=== PATIENT | female | born 1990 | race Hispanic/Latino ===

== ENCOUNTER 2016-08-29 05:09 | Observation (INO) | payer SELFPAY ==
[~2016-08-29] VITALS: Ht 162.6 cm; Wt 121.0 kg
[~2016-08-29 05:09] MED LIST: NAPROSYN500 MG PO; PROTONIX40 MG PO
[2016-08-29 06:01] LABS: HEMATOCRIT 43.3 % (37.0-47.0); HEMOGLOBIN 14.3 g/dl (12.0-16.0); IMMATURE GRANULOCYTES 0.6 % (0.0-1.0); MEAN CELL VOLUME 87.1 fL CALC (80.0-100.0); MEAN CORPUSCULAR HGB 28.8 pG CALC (26.0-32.0); NEUT# 10.65 thou/uL (2.00-7.15); RED BLOOD COUNT 4.97 mill/uL (4.20-5.60); RED CELL DISTRI WIDTH 13.6 % (11.5-15.5)
[2016-08-29 06:20] LABS: ACT PARTIAL THROMBO TIME 27.5 SECONDS (20.0-32.5); ALBUMIN 4.5 g/dL (3.2-5.0); ALKALINE PHOSPHATASE 68 u/l (38-126); ANION GAP 16 (6-22 (CALC)); BILIRUBIN, TOTAL 0.5 mg/dL (0.0-1.4); BUN 15 mg/dL (7-17); BUN/CREATININE RATIO 23 (12-20 (CALC)); CALCIUM 9.5 mg/dL (8.4-10.2); CARBON DIOXIDE 27 mmol/l (22-30); CHLORIDE 102 mmol/l (95-108); CREATININE 0.7 mg/dL (0.5-1.0); GFR > 60 ML/MIN (>=60 (CALC)); GFR FOR AFR.AMER. > 60 ML/MIN (>=60 (CALC)); GLUCOSE 118 mg/dL (65-105); INTERNATIONAL NORMALIZED RATIO 0.9 RATIO (0.7-1.3); POTASSIUM 3.8 mmol/l (3.5-5.1); PROTHROMBIN TIME 10.2 SECONDS (9.0-12.5); SGOT/AST 24 u/l (14-36); SGPT/ALT 29 u/l (9-52); SODIUM 141 mmol/l (137-146); TOTAL PROTEIN 8.1 g/dL (6.3-8.2)
[2016-08-29 08:10] VITALS: BP 188/88
[2016-08-29] MEDS ORDERED: LOSARTAN POT50 MG PO (13:18)
[2016-08-29] MEDS ORDERED: AMLODIPINE BESYL5 MG PO (13:18)
== END 2016-08-29 13:46 | disposition left against medical advice (07) | DRG 305 ==
LOC: ED 05:09 → ED-I 05:39 → ED 05:39 → ED-I 06:55 → ED 07:02 → MS2 07:03
PROVIDERS: Emergency Medicine; ADMIT Internal Medicine; ATTEND Internal Medicine
DX: I16.0 Hypertensive urgency (principal); Z68.42 Body mass index [BMI] 45.0-49.9, adult; I10 Essential (primary) hypertension; H57.8 Other specified disorders of eye and adnexa; E66.01 Morbid (severe) obesity due to excess calories; Z91.14 Patient's other noncompliance with medication regimen
CPT/HCPCS: G0378

== ENCOUNTER 2017-04-14 18:43 | Inpatient (IN) | payer SELFPAY ==
[~2017-04-14] VITALS: Ht 162.6 cm; Wt 111.6 kg
[~2017-04-14 18:43] MED LIST changes: +AMLODIPINE BESYL5 MG PO; +LOSARTAN POT50 MG PO
[2017-04-14 19:45] LABS: HEMATOCRIT 46.7 % (37.0-47.0); HEMOGLOBIN 14.9 g/dl (12.0-16.0); IMMATURE GRANULOCYTES 0.7 % (0.0-1.0); MEAN CELL VOLUME 85.7 fL CALC (80.0-100.0); MEAN CORPUSCULAR HGB 27.3 pG CALC (26.0-32.0); MEAN CORPUSCULAR HGB CONC 31.9 g/L CALC (32.0-36.0); NEUT# 16.74 thou/uL (2.00-7.15); RED BLOOD COUNT 5.45 mill/uL (4.20-5.60); RED CELL DISTRI WIDTH 16.1 % (11.5-15.5)
[2017-04-14 20:08] LABS: ALBUMIN 4.7 g/dL (3.2-5.0); ALKALINE PHOSPHATASE 91 u/l (38-126); ANION GAP 21 (6-22 (CALC)); BILIRUBIN, TOTAL 0.7 mg/dL (0.0-1.4); BUN 21 mg/dL (7-17); BUN/CREATININE RATIO 17 (12-20 (CALC)); CALCIUM 9.8 mg/dL (8.4-10.2); CARBON DIOXIDE 24 mmol/l (22-30); CHLORIDE 101 mmol/l (95-108); CREATININE 1.2 mg/dL (0.5-1.0); GFR 54 ML/MIN (>=60 (CALC)); GFR FOR AFR.AMER. > 60 ML/MIN (>=60 (CALC)); GLUCOSE 154 mg/dL (65-105); POTASSIUM 3.8 mmol/l (3.5-5.1); SGOT/AST 32 u/l (14-36); SGPT/ALT 25 u/l (9-52); SODIUM 142 mmol/l (137-146); TOTAL PROTEIN 8.3 g/dL (6.3-8.2)
[2017-04-14 20:14] LABS: URINE BILIRUBIN - DIPSTICK NEGATIVE (NEGATIVE); URINE BLOOD DIPSTICK LARGE (NEGATIVE); URINE COLOR YELLOW; URINE GLUCOSE - DIPSTICK 100 mg/dL (NEGATIVE); URINE KETONE NEGATIVE (NEGATIVE); URINE LEUK ESTERASE NEGATIVE (NEGATIVE); URINE NITRITE - DIPSTICK NEGATIVE (Negative); URINE PROTEIN - DIPSTICK >=300 mg/dL (NEG-TRACE); URINE SPECIFIC GRAVITY >=1.030; URINE UROBILINOGEN - DIPSTICK 0.2 E.U./dL (0.2)
[2017-04-14 20:15] LABS: URINE CLARITY CLEAR; URINE HYALINE CAST FEW lpf (NONE-RARE); URINE SQUAMOUS EPITHELIAL CELL FEW EPI/hpf (0-FEW)
[2017-04-14 20:16] LABS: BARBITURATES NEGATIVE (NEGATIVE); COCAINE NEGATIVE (NEGATIVE); METHADONE NEGATIVE (NEGATIVE); OXCYCODONE NEGATIVE (NEGATIVE); TETRAHYDROCANNABIONOL NEGATIVE (NEGATIVE); TRICYLIC ANTIDEPRESSANTS NEGATIVE (NEGATIVE)
[2017-04-14 20:17] LABS: MYOGLOBIN 46 ng/mL (0 - 62)
[2017-04-15] VITALS (24 sets, daily range): BP systolic 143–208; BP diastolic 75–129
[2017-04-15 06:26] LABS: HEMATOCRIT 43.2 % (37.0-47.0); HEMOGLOBIN 13.8 g/dl (12.0-16.0); MEAN CELL VOLUME 84.7 fL CALC (80.0-100.0); MEAN CORPUSCULAR HGB 27.1 pG CALC (26.0-32.0); MEAN CORPUSCULAR HGB CONC 31.9 g/L CALC (32.0-36.0); RED BLOOD COUNT 5.1 mill/uL (4.20-5.60); RED CELL DISTRI WIDTH 16.1 % (11.5-15.5)
[2017-04-15 06:57] LABS: ANION GAP 17 (6-22 (CALC)); BUN 18 mg/dL (7-17); BUN/CREATININE RATIO 18 (12-20 (CALC)); CALCIUM 9.6 mg/dL (8.4-10.2); CALCULATED LDLCHOLESTEROL 147 mg/dL (62-129 (CALC)); CARBON DIOXIDE 24 mmol/l (22-30); CHLORIDE 102 mmol/l (95-108); CHOLESTEROL HDL RATIO 5.7 (<4.4 (CALC)); GFR > 60 ML/MIN (>=60 (CALC)); GFR FOR AFR.AMER. > 60 ML/MIN (>=60 (CALC)); GLUCOSE 134 mg/dL (65-105); HDL CHOLESTEROL 37 mg/dL (>=40); MAGNESIUM 1.9 mg/dL (1.6-2.3); POTASSIUM 4.1 mmol/l (3.5-5.1); SODIUM 139 mmol/l (137-146); TOTAL CHOLESTEROL 211 mg/dl (0-199); TOTAL TRIGLYCERIDES 136 mg/dl (30-149); VLDL CHOLESTROL 27 mg/dl (2-29 (CALC))
[2017-04-16] VITALS (12 sets, daily range): BP systolic 143–175; BP diastolic 63–95
[2017-04-16 05:52] LABS: ANION GAP 14 (6-22 (CALC)); BUN 20 mg/dL (7-17); BUN/CREATININE RATIO 21 (12-20 (CALC)); CALCIUM 9.8 mg/dL (8.4-10.2); CARBON DIOXIDE 25 mmol/l (22-30); CHLORIDE 106 mmol/l (95-108); CREATININE 0.9 mg/dL (0.5-1.0); GFR > 60 ML/MIN (>=60 (CALC)); GFR FOR AFR.AMER. > 60 ML/MIN (>=60 (CALC)); GLUCOSE 137 mg/dL (65-105); POTASSIUM 4.5 mmol/l (3.5-5.1); SODIUM 141 mmol/l (137-146)
[2017-04-16 05:55] LABS: HEMATOCRIT 41.8 % (37.0-47.0); HEMOGLOBIN 13.2 g/dl (12.0-16.0); MEAN CELL VOLUME 87.3 fL CALC (80.0-100.0); MEAN CORPUSCULAR HGB 27.6 pG CALC (26.0-32.0); MEAN CORPUSCULAR HGB CONC 31.6 g/L CALC (32.0-36.0); RED BLOOD COUNT 4.79 mill/uL (4.20-5.60); RED CELL DISTRI WIDTH 16.7 % (11.5-15.5)
[2017-04-17] VITALS (9 sets, daily range): BP systolic 151–188; BP diastolic 77–104
[2017-04-17 05:18] LABS: HEMATOCRIT 43.3 % (37.0-47.0); HEMOGLOBIN 13.6 g/dl (12.0-16.0); IMMATURE GRANULOCYTES 1.1 % (0.0-1.0); MEAN CORPUSCULAR HGB 27.6 pG CALC (26.0-32.0); MEAN CORPUSCULAR HGB CONC 31.4 g/L CALC (32.0-36.0); NEUT# 24.01 thou/uL (2.00-7.15); RED BLOOD COUNT 4.92 mill/uL (4.20-5.60)
[2017-04-17 05:28] LABS: ANION GAP 15 (6-22 (CALC)); BUN 26 mg/dL (7-17); BUN/CREATININE RATIO 28 (12-20 (CALC)); CALCIUM 10.1 mg/dL (8.4-10.2); CARBON DIOXIDE 25 mmol/l (22-30); CHLORIDE 105 mmol/l (95-108); CREATININE 0.9 mg/dL (0.5-1.0); GFR > 60 ML/MIN (>=60 (CALC)); GFR FOR AFR.AMER. > 60 ML/MIN (>=60 (CALC)); GLUCOSE 139 mg/dL (65-105); MAGNESIUM 2.4 mg/dL (1.6-2.3); SODIUM 139 mmol/l (137-146)
[2017-04-17] MEDS ORDERED: LEVAQUIN750 MG PO (12:48)
[2017-04-17] MEDS ORDERED: PREDNISONE10 MG PO (12:48)
[2017-04-17] MEDS ORDERED: AMLODIPINE BESYL5 MG PO (12:48)
[2017-04-17] MEDS ORDERED: TENORMIN25 MG PO (12:48)
[2017-04-17] MEDS ORDERED: LOSARTAN POT50 MG PO (12:48)
[2017-04-17] MEDS ORDERED: ROBITUSSIN AC10 ML PO (12:48)
== END 2017-04-17 13:10 | disposition home or self-care (01) | DRG 304 ==
LOC: ED 18:43 → ED-I 22:50 → ED 23:11 → ICU 23:12 → ED 23:48 → ED-I 23:48 → ICU 04-17 13:10
PROVIDERS: Emergency Medicine; Nurse Practitioner Family; ADMIT Internal Medicine; ATTEND Internal Medicine
DX: I16.0 Hypertensive urgency (principal); J18.9 Pneumonia, unspecified organism; N17.9 Acute kidney failure, unspecified; Z68.41 Body mass index [BMI] 40.0-44.9, adult; I10 Essential (primary) hypertension; E66.01 Morbid (severe) obesity due to excess calories; D72.829 Elevated white blood cell count, unspecified; T38.0X5A Adverse effect of glucocorticoids and synthetic analogues, initial encounter; N92.6 Irregular menstruation, unspecified; Z91.14 Patient's other noncompliance with medication regimen
CPT/HCPCS: J1650

== ENCOUNTER 2017-07-25 11:31 | Emergency (ER) | payer SELFPAY ==
[~2017-07-25] VITALS: Ht 162.6 cm; Wt 114.0 kg
[~2017-07-25 11:31] MED LIST changes: +LEVAQUIN750 MG PO; +PREDNISONE10 MG PO; +ROBITUSSIN AC10 ML PO; +TENORMIN25 MG PO
[2017-07-25 12:13] LABS: URINE BILIRUBIN - DIPSTICK NEGATIVE (NEGATIVE); URINE BLOOD DIPSTICK MODERATE (NEGATIVE); URINE COLOR YELLOW; URINE GLUCOSE - DIPSTICK NEGATIVE (NEGATIVE); URINE KETONE NEGATIVE (NEGATIVE); URINE LEUK ESTERASE NEGATIVE (NEGATIVE); URINE NITRITE - DIPSTICK NEGATIVE (Negative); URINE PH 5.5 (4.5-8.0); URINE PROTEIN - DIPSTICK >=300 mg/dL (NEG-TRACE); URINE SPECIFIC GRAVITY >=1.030; URINE UROBILINOGEN - DIPSTICK 0.2 E.U./dL (0.2)
[2017-07-25 12:14] LABS: URINE CLARITY SL CLOUDY
[2017-07-25 12:15] LABS: HEMATOCRIT 44.5 % (37.0-47.0); HEMOGLOBIN 14.4 g/dl (12.0-16.0); IMMATURE GRANULOCYTES 0.5 % (0.0-1.0); MEAN CELL VOLUME 88.3 fL CALC (80.0-100.0); MEAN CORPUSCULAR HGB 28.6 pG CALC (26.0-32.0); MEAN CORPUSCULAR HGB CONC 32.4 g/L CALC (32.0-36.0); NEUT# 12.43 thou/uL (2.00-7.15); RED BLOOD COUNT 5.04 mill/uL (4.20-5.60); RED CELL DISTRI WIDTH 14.9 % (11.5-15.5)
[2017-07-25 12:19] LABS: URINE SQUAMOUS EPITHELIAL CELL MANY EPI/hpf (0-FEW)
[2017-07-25 12:39] LABS: ALBUMIN 4.8 g/dL (3.2-5.0); ALKALINE PHOSPHATASE 73 u/l (38-126); AMYLASE 60 u/l (30-110); ANION GAP 23 (6-22 (CALC)); BILIRUBIN, TOTAL 0.7 mg/dL (0.0-1.4); BUN 16 mg/dL (7-17); BUN/CREATININE RATIO 20 (12-20 (CALC)); CARBON DIOXIDE 22 mmol/l (22-30); CHLORIDE 104 mmol/l (95-108); CREATININE 0.8 mg/dL (0.5-1.0); GFR > 60 ML/MIN (>=60 (CALC)); GFR FOR AFR.AMER. > 60 ML/MIN (>=60 (CALC)); LIPASE 170 u/l (23-300); POTASSIUM 4.2 mmol/l (3.5-5.1); SGOT/AST 21 u/l (14-36); SGPT/ALT 33 u/l (9-52); SODIUM 145 mmol/l (137-146); TOTAL PROTEIN 8.7 g/dL (6.3-8.2)
[2017-07-25] MEDS ORDERED: TENORMIN PO (14:46)
[2017-07-25 14:56] VITALS: BP 175/82
[2017-07-26] MEDS ORDERED: ASPIRIN81 MG PO (22:58)
== END 2017-07-25 15:10 | disposition home or self-care (01) | DRG 446 ==
LOC: ED 11:31
PROVIDERS: Family Medicine
DX: K81.0 Acute cholecystitis (principal); I10 Essential (primary) hypertension

== ENCOUNTER 2017-07-26 22:41 | Emergency (ER) | payer SELFPAY ==
[~2017-07-26] VITALS: Ht 162.6 cm; Wt 115.6 kg
[~2017-07-26 22:41] MED LIST changes: +TENORMIN PO
[2017-07-26] MEDS ORDERED: ASPIRIN81 MG PO (22:58)
[2017-07-26 23:28] LABS: HEMATOCRIT 40.9 % (37.0-47.0); HEMOGLOBIN 13.4 g/dl (12.0-16.0); IMMATURE GRANULOCYTES 0.4 % (0.0-1.0); MEAN CORPUSCULAR HGB 28.5 pG CALC (26.0-32.0); MEAN CORPUSCULAR HGB CONC 32.8 g/L CALC (32.0-36.0); NEUT# 13.78 thou/uL (2.00-7.15); RED BLOOD COUNT 4.7 mill/uL (4.20-5.60); RED CELL DISTRI WIDTH 15.1 % (11.5-15.5)
[2017-07-26 23:46] LABS: ALBUMIN 4.3 g/dL (3.2-5.0); AMYLASE 57 u/l (30-110); ANION GAP 18 (6-22 (CALC)); BILIRUBIN, TOTAL 3.8 mg/dL (0.0-1.4); BUN 8 mg/dL (7-17); BUN/CREATININE RATIO 10 (12-20 (CALC)); CARBON DIOXIDE 25 mmol/l (22-30); CHLORIDE 103 mmol/l (95-108); CREATININE 0.7 mg/dL (0.5-1.0); GFR > 60 ML/MIN (>=60 (CALC)); GFR FOR AFR.AMER. > 60 ML/MIN (>=60 (CALC)); LIPASE 197 u/l (23-300); POTASSIUM 3.8 mmol/l (3.5-5.1); SGPT/ALT 182 u/l (9-52); SODIUM 143 mmol/l (137-146); TOTAL PROTEIN 7.9 g/dL (6.3-8.2)
[2017-07-26 23:51] LABS: ALKALINE PHOSPHATASE 124 u/l (38-126); SGOT/AST 204 u/l (14-36)
[2017-07-27 02:45] VITALS: BP 149/77
== END 2017-07-27 02:43 | disposition short-term general hospital (02) | DRG 446 ==
LOC: ED 22:41
PROVIDERS: Emergency Medicine
DX: K81.0 Acute cholecystitis (principal); E80.6 Other disorders of bilirubin metabolism; I10 Essential (primary) hypertension
CPT/HCPCS: S0164

== ENCOUNTER 2017-10-21 19:38 | Inpatient (IN) | payer SELFPAY ==
[~2017-10-21] VITALS: Ht 162.6 cm; Wt 110.0 kg
[~2017-10-21 19:38] MED LIST changes: +ASPIRIN81 MG PO
[2017-10-21 19:57] LABS: HEMATOCRIT 44.6 % (37.0-47.0); HEMOGLOBIN 14.2 g/dl (12.0-16.0); IMMATURE GRANULOCYTES 0.5 % (0.0-5.0); MEAN CELL VOLUME 88.5 fL CALC (80.0-100.0); MEAN CORPUSCULAR HGB 28.2 pG CALC (26.0-32.0); MEAN CORPUSCULAR HGB CONC 31.8 g/L CALC (32.0-36.0); NEUT# 13.92 thou/uL (2.00-7.15); RED BLOOD COUNT 5.04 mill/uL (4.20-5.60); RED CELL DISTRI WIDTH 16.1 % (11.5-15.5)
[2017-10-21 20:09] LABS: ALBUMIN 4.3 g/dL (3.2-5.0); ALKALINE PHOSPHATASE 72 u/l (38-126); ANION GAP 15 (6-22 (CALC)); BILIRUBIN, TOTAL 1.3 mg/dL (0.0-1.4); BUN 17 mg/dL (7-17); BUN/CREATININE RATIO 17 (12-20 (CALC)); CARBON DIOXIDE 26 mmol/l (22-30); CHLORIDE 105 mmol/l (95-108); GFR > 60 ML/MIN (>=60 (CALC)); GFR FOR AFR.AMER. > 60 ML/MIN (>=60 (CALC)); POTASSIUM 4.1 mmol/l (3.5-5.1); SGPT/ALT 28 u/l (9-52); SODIUM 141 mmol/l (137-146)
[2017-10-21 20:14] LABS: SGOT/AST 25 u/l (14-36)
[2017-10-21 20:17] LABS: MYOGLOBIN 26 ng/mL (0 - 62)
[2017-10-21 22:08] LABS: URINE BILIRUBIN - DIPSTICK NEGATIVE (NEGATIVE); URINE BLOOD DIPSTICK MODERATE (NEGATIVE); URINE COLOR YELLOW; URINE GLUCOSE - DIPSTICK NEGATIVE (NEGATIVE); URINE KETONE NEGATIVE (NEGATIVE); URINE LEUK ESTERASE NEGATIVE (NEGATIVE); URINE NITRITE - DIPSTICK NEGATIVE (Negative); URINE PROTEIN - DIPSTICK >=300 mg/dL (NEG-TRACE); URINE SPECIFIC GRAVITY 1.025; URINE UROBILINOGEN - DIPSTICK 0.2 E.U./dL (0.2)
[2017-10-21 22:10] LABS: BARBITURATES NEGATIVE (NEGATIVE); COCAINE NEGATIVE (NEGATIVE); METHADONE NEGATIVE (NEGATIVE); OXCYCODONE NEGATIVE (NEGATIVE); TETRAHYDROCANNABIONOL NEGATIVE (NEGATIVE); TRICYLIC ANTIDEPRESSANTS NEGATIVE (NEGATIVE)
[2017-10-21 22:14] LABS: URINE CLARITY HAZY
[2017-10-21 22:28] LABS: URINE SQUAMOUS EPITHELIAL CELL FEW EPI/hpf (0-FEW)
[2017-10-22] VITALS (22 sets, daily range): BP systolic 148–208; BP diastolic 74–125
[2017-10-23] VITALS (12 sets, daily range): BP systolic 145–192; BP diastolic 77–122
[2017-10-23 04:39] LABS: HEMATOCRIT 44.3 % (37.0-47.0); HEMOGLOBIN 13.9 g/dl (12.0-16.0); MEAN CELL VOLUME 88.8 fL CALC (80.0-100.0); MEAN CORPUSCULAR HGB 27.9 pG CALC (26.0-32.0); MEAN CORPUSCULAR HGB CONC 31.4 g/L CALC (32.0-36.0); RED BLOOD COUNT 4.99 mill/uL (4.20-5.60); RED CELL DISTRI WIDTH 16.5 % (11.5-15.5)
[2017-10-23 04:57] LABS: ANION GAP 14 (6-22 (CALC)); BUN 15 mg/dL (7-17); BUN/CREATININE RATIO 18 (12-20 (CALC)); CARBON DIOXIDE 27 mmol/l (22-30); CHLORIDE 102 mmol/l (95-108); CREATININE 0.8 mg/dL (0.5-1.0); GFR > 60 ML/MIN (>=60 (CALC)); GFR FOR AFR.AMER. > 60 ML/MIN (>=60 (CALC)); POTASSIUM 4.3 mmol/l (3.5-5.1); SODIUM 138 mmol/l (137-146)
[2017-10-24] VITALS (13 sets, daily range): BP systolic 126–179; BP diastolic 68–112
[2017-10-24 11:51] LABS: TSH, 3RD GENERATION 2.36 uIU/mL (0.47 - 4.68)
[2017-10-25] VITALS (13 sets, daily range): BP systolic 137–203; BP diastolic 77–118
== END 2017-10-25 16:16 | disposition left against medical advice (07) | DRG 305 ==
LOC: ED 19:38 → ED-I 22:18 → ED 23:10 → ICU 23:11
PROVIDERS: Emergency Medicine; General Practice; ADMIT Internal Medicine; ATTEND Internal Medicine
DX: I16.1 Hypertensive emergency (principal); Z68.42 Body mass index [BMI] 45.0-49.9, adult; I43 Cardiomyopathy in diseases classified elsewhere; I11.9 Hypertensive heart disease without heart failure; E66.01 Morbid (severe) obesity due to excess calories; E28.2 Polycystic ovarian syndrome; D72.829 Elevated white blood cell count, unspecified; F32.9 Major depressive disorder, single episode, unspecified; F41.9 Anxiety disorder, unspecified; I34.0 Nonrheumatic mitral (valve) insufficiency; G47.30 Sleep apnea, unspecified

== ENCOUNTER 2018-02-06 21:47 | Emergency (ER) | payer SELFPAY ==
[~2018-02-06] VITALS: Ht 162.6 cm; Wt 118.4 kg
[~2018-02-06 21:47] MED LIST changes: +METO50TA52 PO; +NORVASC PO; +ZITHROMAX250 MG PO
--- NOTE | 2018-02-06 22:38 | NUR ---
BREATHING TREATMENT GIVEN USING MOUTH PEICE. BREATHING TECH. FOR GOOD DEPOSITION TO THE LUNGS
[2018-02-06 22:52] LABS: URINE BLOOD DIPSTICK LARGE (NEGATIVE); URINE COLOR YELLOW; URINE GLUCOSE - DIPSTICK NEGATIVE (NEGATIVE); URINE KETONE NEGATIVE (NEGATIVE); URINE LEUK ESTERASE NEGATIVE (NEGATIVE); URINE NITRITE - DIPSTICK NEGATIVE (Negative); URINE PROTEIN - DIPSTICK >=300 mg/dL (NEG-TRACE); URINE SPECIFIC GRAVITY 1.025
[2018-02-06 22:53] LABS: URINE BILIRUBIN - DIPSTICK MODERATE (NEGATIVE); URINE CLARITY SL CLOUDY
[2018-02-06 22:58] LABS: URINE BACTERIA FEW hpf; URINE SQUAMOUS EPITHELIAL CELL FEW EPI/hpf (0-FEW); URINE WBC 0-2 WBC/hpf (0-5)
[2018-02-06 22:59] LABS: HEMATOCRIT 45.9 % (37.0-47.0); HEMOGLOBIN 14.5 g/dl (12.0-16.0); IMMATURE GRANULOCYTES 0.7 % (0.0-5.0); MEAN CELL VOLUME 86.3 fL CALC (80.0-100.0); MEAN CORPUSCULAR HGB 27.3 pG CALC (26.0-32.0); MEAN CORPUSCULAR HGB CONC 31.6 g/L CALC (32.0-36.0); NEUT# 13.66 thou/uL (2.00-7.15); RED BLOOD COUNT 5.32 mill/uL (4.20-5.60); RED CELL DISTRI WIDTH 18.9 % (11.5-15.5)
[2018-02-06 22:59] LABS: URINE FINE GRAN CAST MODERATE lpf
[2018-02-06 23:10] LABS: INFLUENZA A NONE DETECTED (NONE DETECT); INFLUENZA B NONE DETECTED (NONE DETECT)
[2018-02-06 23:12] LABS: BILIRUBIN, TOTAL 2.2 mg/dL (0.0-1.4); CREATININE 1.6 mg/dL (0.5-1.0); POTASSIUM 4.3 mmol/l (3.5-5.1); TOTAL PROTEIN 6.5 g/dL (6.3-8.2)
[2018-02-06 23:15] LABS: ALBUMIN 3.2 g/dL (3.2-5.0)
[2018-02-06] MEDS ORDERED: VENTOLIN HFA IN (23:39)
[2018-02-06] MEDS ORDERED: BACTRIM DS1 TAB PO (23:39)
[2018-02-06] MEDS ORDERED: LASIX 40 MG TAB40 MG PO (23:39)
[2018-02-07 01:01] VITALS: BP 161/109
== END 2018-02-07 00:50 | disposition home or self-care (01) | DRG 203 ==
LOC: ED 21:47
PROVIDERS: Family Medicine
DX: J20.9 Acute bronchitis, unspecified (principal); R60.9 Edema, unspecified; D72.829 Elevated white blood cell count, unspecified; I10 Essential (primary) hypertension

== ENCOUNTER 2018-07-01 13:55 | Inpatient (IN) | payer MEDICAID ==
[~2018-07-01] VITALS: Ht 162.6 cm; Wt 114.0 kg
[2018-07-01] VITALS (15 sets, daily range): BP systolic 123–179; BP diastolic 55–107
[~2018-07-01 13:55] MED LIST changes: +BACTRIM DS1 TAB PO; +LASIX 40 MG TAB40 MG PO; +VENTOLIN HFA IN
[2018-07-01 14:13] LABS: HEMATOCRIT 45.2 % (37.0-47.0); HEMOGLOBIN 14.3 g/dl (12.0-16.0); IMMATURE GRANULOCYTES 0.8 % (0.0-5.0); MEAN CORPUSCULAR HGB 29.5 pG CALC (26.0-32.0); MEAN CORPUSCULAR HGB CONC 31.6 g/L CALC (32.0-36.0); NEUT# 14.48 thou/uL (2.00-7.15); RED BLOOD COUNT 4.84 mill/uL (4.20-5.60); RED CELL DISTRI WIDTH 16.1 % (11.5-15.5)
[2018-07-01] MEDS ORDERED: CARVEDILOL25 MG PO (14:15)
[2018-07-01] MEDS ORDERED: AMLODIPINE5 MG PO (14:15)
[2018-07-01] MEDS ORDERED: SPIRONOLACTONE25 MG PO (14:15)
[2018-07-01] MEDS ORDERED: LISINOPRIL10 MG PO (14:15)
[2018-07-01 14:16] LABS: MEAN CELL VOLUME 93.4 fL CALC (80.0-100.0)
[2018-07-01] MEDS ORDERED: ATORVASTATIN CA80 MG PO (14:16)
[2018-07-01] MEDS ORDERED: FUROSEMIDE40 MG PO (14:16)
[2018-07-01] MEDS ORDERED: ASPIRIN81 MG PO (14:16)
[2018-07-01 14:26] LABS: ANION GAP 16 (6-22 (CALC)); BUN 19 mg/dL (7-17); BUN/CREATININE RATIO 16 (12-20 (CALC)); CARBON DIOXIDE 25 mmol/l (22-30); CHLORIDE 101 mmol/l (95-108); CREATININE 1.2 mg/dL (0.5-1.0); GFR 53 ML/MIN (>=60 (CALC)); GFR FOR AFR.AMER. > 60 ML/MIN (>=60 (CALC)); POTASSIUM 4.1 mmol/l (3.5-5.1); SODIUM 138 mmol/l (137-146)
[2018-07-01 15:37] LABS: BARBITURATES NEGATIVE (NEGATIVE); COCAINE NEGATIVE (NEGATIVE); METHADONE NEGATIVE (NEGATIVE); OXCYCODONE NEGATIVE (NEGATIVE); TETRAHYDROCANNABIONOL NEGATIVE (NEGATIVE); TRICYLIC ANTIDEPRESSANTS NEGATIVE (NEGATIVE)
[2018-07-01 15:42] LABS: URINE BILIRUBIN - DIPSTICK NEGATIVE (NEGATIVE); URINE BLOOD DIPSTICK NEGATIVE (NEGATIVE); URINE COLOR YELLOW; URINE GLUCOSE - DIPSTICK NEGATIVE (NEGATIVE); URINE KETONE NEGATIVE (NEGATIVE); URINE LEUK ESTERASE NEGATIVE (NEGATIVE); URINE NITRITE - DIPSTICK NEGATIVE (Negative); URINE PROTEIN - DIPSTICK >=300 mg/dL (NEG-TRACE); URINE SPECIFIC GRAVITY 1.015; URINE UROBILINOGEN - DIPSTICK 0.2 E.U./dL (0.2)
[2018-07-01 15:47] LABS: URINE RBC 0-2 RBC/hpf (0-5); URINE SQUAMOUS EPITHELIAL CELL FEW EPI/hpf (0-FEW); URINE WBC 0-2 WBC/hpf (0-5)
[2018-07-02] VITALS (26 sets, daily range): BP systolic 144–192; BP diastolic 78–125
[2018-07-02 10:01] LABS: HEMOGLOBIN 16.2 g/dl (12.0-16.0); IMMATURE GRANULOCYTES 0.6 % (0.0-5.0); MEAN CELL VOLUME 92.6 fL CALC (80.0-100.0); MEAN CORPUSCULAR HGB 29.1 pG CALC (26.0-32.0); MEAN CORPUSCULAR HGB CONC 31.5 g/L CALC (32.0-36.0); NEUT# 19.1 thou/uL (2.00-7.15); RED BLOOD COUNT 5.56 mill/uL (4.20-5.60); RED CELL DISTRI WIDTH 16.6 % (11.5-15.5)
[2018-07-02 10:07] LABS: HEMATOCRIT 51.5 % (37.0-47.0)
[2018-07-02 10:16] LABS: ALKALINE PHOSPHATASE 79 u/l (38-126); AMYLASE 61 u/l (30-110); ANION GAP 17 (6-22 (CALC)); BILIRUBIN, TOTAL 1.8 mg/dL (0.0-1.4); BUN 13 mg/dL (7-17); BUN/CREATININE RATIO 16 (12-20 (CALC)); CARBON DIOXIDE 26 mmol/l (22-30); CHLORIDE 99 mmol/l (95-108); CREATININE 0.8 mg/dL (0.5-1.0); GFR > 60 ML/MIN (>=60 (CALC)); GFR FOR AFR.AMER. > 60 ML/MIN (>=60 (CALC)); LIPASE 248 u/l (23-300); MAGNESIUM 1.8 mg/dL (1.6-2.3); POTASSIUM 3.8 mmol/l (3.5-5.1); SODIUM 139 mmol/l (137-146)
[2018-07-02 10:19] LABS: ALBUMIN 4.5 g/dL (3.2-5.0); SGOT/AST 29 u/l (14-36); TOTAL PROTEIN 8.5 g/dL (6.3-8.2)
== END 2018-07-02 13:20 | disposition left against medical advice (07) | DRG 305 ==
LOC: ED 13:55 → ED-I 15:07 → ED 15:21 → ICU 15:22
PROVIDERS: Family Medicine; ADMIT Internal Medicine Nephrology; ATTEND Internal Medicine Nephrology
DX: I16.1 Hypertensive emergency (principal); I50.22 Chronic systolic (congestive) heart failure; Z68.41 Body mass index [BMI] 40.0-44.9, adult; I43 Cardiomyopathy in diseases classified elsewhere; I13.0 Hypertensive heart and chronic kidney disease with heart failure and stage 1 through stage 4 chronic kidney disease, or unspecified chronic kidney disease; N18.9 Chronic kidney disease, unspecified; I15.2 Hypertension secondary to endocrine disorders; E66.9 Obesity, unspecified; E28.2 Polycystic ovarian syndrome; T46.5X6A Underdosing of other antihypertensive drugs, initial encounter; Z91.120 Patient's intentional underdosing of medication regimen due to financial hardship

== ENCOUNTER 2019-09-19 11:27 | Emergency (ER) | payer MEDICAID ==
[~2019-09-19] VITALS: Ht 162.6 cm; Wt 159.0 kg
[~2019-09-19 11:27] MED LIST changes: +AMLODIPINE5 MG PO; +ATORVASTATIN CA80 MG PO; +CARVEDILOL25 MG PO; +FUROSEMIDE40 MG PO; +LISINOPRIL10 MG PO; +SPIRONOLACTONE25 MG PO
[2019-09-19] MEDS ORDERED: CETIRIZINE10 MG PO (13:43)
[2019-09-19] MEDS ORDERED: OMEPRAZOLE DR20 MG PO (13:43)
[2019-09-19] MEDS ORDERED: FENOFIBRATE145 MG PO (13:43)
[2019-09-19] MEDS ORDERED: PAROXETINE HCL20 MG PO (13:44)
[2019-09-19] MEDS ORDERED: METFORMIN HCL500 M1 PO (13:44)
[2019-09-19] MEDS ORDERED: PROAIR HFA108 MCG/AC IN (13:45)
[2019-09-19 14:19] VITALS: BP 143/57
--- NOTE | 2019-09-21 18:18 | NUR ---
Notified patient of positive Covid results. Advised patient to quarantine until contacted by [facility] with further instructions. Patient denies dyspnea or fever. Advised patient to return to ED with increase difficulty breathing, high fever or other urgent needs. Patient verbalized understanding.
== END 2019-09-19 14:31 | disposition home or self-care (01) ==
LOC: ED 11:27
DX: U07.1 COVID-19 (principal); I10 Essential (primary) hypertension; I48.91 Unspecified atrial fibrillation

== ENCOUNTER 2019-12-30 05:02 | Emergency (ER) | payer MEDICAID ==
[~2019-12-30] VITALS: Ht 162.6 cm; Wt 113.6 kg
[~2019-12-30 05:02] MED LIST changes: +CETIRIZINE10 MG PO; +FENOFIBRATE145 MG PO; +METFORMIN HCL500 M1 PO; +OMEPRAZOLE DR20 MG PO; +PAROXETINE HCL20 MG PO; +PROAIR HFA108 MCG/AC IN
[2019-12-30 06:17] LABS: HEMATOCRIT 44.7 % (37.0-47.0); HEMOGLOBIN 14.3 g/dl (12.0-16.0); IMMATURE GRANULOCYTES 0.8 % (0.0-5.0); MEAN CELL VOLUME 90.9 fL CALC (80.0-100.0); MEAN CORPUSCULAR HGB 29.1 pG CALC (26.0-32.0); NEUT# 13.83 thou/uL (2.00-7.15); RED BLOOD COUNT 4.92 mill/uL (4.20-5.60); RED CELL DISTRI WIDTH 14.7 % (11.5-15.5)
[2019-12-30 06:20] LABS: URINE BILIRUBIN - DIPSTICK NEGATIVE (NEGATIVE); URINE BLOOD DIPSTICK TRACE-INTACT (NEGATIVE); URINE COLOR YELLOW; URINE GLUCOSE - DIPSTICK NEGATIVE (NEGATIVE); URINE KETONE NEGATIVE (NEGATIVE); URINE LEUK ESTERASE NEGATIVE (NEGATIVE); URINE NITRITE - DIPSTICK NEGATIVE (Negative); URINE PROTEIN - DIPSTICK 100 mg/dL (NEG-TRACE); URINE UROBILINOGEN - DIPSTICK 0.2 E.U./dL (0.2)
[2019-12-30 06:30] LABS: URINE WBC 0-2 WBC/hpf (0-5)
[2019-12-30 06:31] LABS: URINE BACTERIA FEW hpf; URINE EPITHELIAL CELLS MODERATE EPI/hpf (0-FEW)
[2019-12-30 07:24] LABS: ALBUMIN 4.1 g/dL (3.2-5.0); ALKALINE PHOSPHATASE 70 u/l (38-126); ANION GAP 14 (6-22 (CALC)); BILIRUBIN, TOTAL 0.7 mg/dL (0.0-1.4); BUN 15 mg/dL (7-17); BUN/CREATININE RATIO 16 (12-20 (CALC)); CARBON DIOXIDE 25 mmol/l (22-30); CHLORIDE 101 mmol/l (95-108); GFR > 60 ML/MIN (>=60 (CALC)); GFR FOR AFR.AMER. > 60 ML/MIN (>=60 (CALC)); POTASSIUM 3.7 mmol/l (3.5-5.1); SGOT/AST 34 u/l (14-36); SODIUM 137 mmol/l (137-146); TOTAL PROTEIN 7.8 g/dL (6.3-8.2)
[2019-12-30 07:35] LABS: MYOGLOBIN 30 ng/mL (0 - 62)
[2019-12-30 11:29] VITALS: BP 158/90
== END 2019-12-30 11:35 | disposition home or self-care (01) ==
LOC: ED 05:02
PROVIDERS: Emergency Medicine
DX: R07.9 Chest pain, unspecified (principal); R91.8 Other nonspecific abnormal finding of lung field; I10 Essential (primary) hypertension; I48.91 Unspecified atrial fibrillation
CPT/HCPCS: Q9967

== ENCOUNTER 2020-05-27 20:33 | Inpatient (IN) | payer MEDICAID ==
[~2020-05-27] VITALS: Ht 162.6 cm; Wt 128.5 kg
--- NOTE | 2020-05-27 20:52 | NUR ---
PT TRANSPORTED TO ER RM 9
--- NOTE | 2020-05-27 21:11 | NUR ---
INTRODUCED SELF TO PT AND REPORTS PEDAL EDEMA X 3 WEEKS WITH WORSENING OVER THE LAST WEEK. PT STATES SHE DOES TAKE A "WATER PILL" BUT UNABLE TO IDENTIFY THE NAME. C/O DRY COUGH X SEVERAL DAYS. PT UNABLLE TO RECALL HOME MEDICATIONS. STATES SHE TAKES BP MEDS BUT DID NOT TAKE MEDICAITONS TODAY SHE WAS UNABLE TO REST THROUGHOUT THE EVENING AND SLEPT MOST OF THE DAY. BP ELEVATED AT 248/127 WITH HR 130-140S AT SINUS TACH. DR CARDOZO NOTIFIED AND BEDSIDE WITH PT. PT CHANGED INTO GOWN.
--- NOTE | 2020-05-27 21:25 | NUR ---
IV INTIATED WITH LAB SPECIMENS OBTAINED. PT TOLERATED WELL.
[2020-05-27 21:39] LABS: HEMOGLOBIN 15.9 g/dl (12.0-16.0); IMMATURE GRANULOCYTES 1.2 % (0.0-5.0); MEAN CELL VOLUME 90.6 fL CALC (80.0-100.0); MEAN CORPUSCULAR HGB 28.1 pG CALC (26.0-32.0); NEUT# 12.78 thou/uL (2.00-7.15); RED BLOOD COUNT 5.66 mill/uL (4.20-5.60); RED CELL DISTRI WIDTH 16.5 % (11.5-15.5)
--- NOTE | 2020-05-27 21:40 | NUR ---
PT MEDICATED FOR ELEVATED BLOOD PRESSURE WITH CARDIZEM 40 MG SLOW IVP AND LASIX [address] CARDOZO ORDER. PT TOLERATED ADMINISTRATION WELL. TRUCK RENTAL SERVICE ATTENDANT IN PLACE. BP 251/139 HR 136
[2020-05-27 21:41] LABS: HEMATOCRIT 51.3 % (37.0-47.0)
[2020-05-27 21:59] LABS: ALBUMIN 4.2 g/dL (3.2-5.0); ALKALINE PHOSPHATASE 92 u/l (38-126); ANION GAP 14 (6-22 (CALC)); BUN 19 mg/dL (7-17); BUN/CREATININE RATIO 16 (12-20 (CALC)); CARBON DIOXIDE 27 mmol/l (22-30); CHLORIDE 101 mmol/l (95-108); CREATININE 1.2 mg/dL (0.5-1.0); GFR 53 ML/MIN (>=60 (CALC)); GFR FOR AFR.AMER. > 60 ML/MIN (>=60 (CALC)); SGOT/AST 54 u/l (14-36); SODIUM 137 mmol/l (137-146); TOTAL PROTEIN 8.2 g/dL (6.3-8.2)
[2020-05-27 22:01] LABS: ACT PARTIAL THROMBO TIME 24.9 SECONDS (20.0-32.5); INTERNATIONAL NORMALIZED RATIO 1.1 RATIO (0.7-1.3); PROTHROMBIN TIME 10.9 SECONDS (9.0-12.5)
[2020-05-27 22:11] LABS: MYOGLOBIN 52 ng/mL (0 - 62)
[2020-05-27 22:17] LABS: D-DIMER 0.63 mg/L (0.19-0.60)
--- NOTE | 2020-05-27 22:25 | NUR ---
CARDIZEM GTT INTIATED PER EDP ORDER D/T HYPERTENSION TO LAC SITE. FREE FROM REDNESS/SWELLING/WARMTH. IN ROOM WITH PT FOR BEGINNING OF INFUSION. TOLERATING WELL. ADVISED OF CONT WAIT TIME. VERBALIZES UNDERSTANDING. DENIES ANY NEEDS. CALL LIGHT WITHIN REACH.
--- NOTE | 2020-05-27 22:28 | NUR ---
PT AMBULATORY TO BATHROOM.
[2020-05-27 22:52] LABS: URINE BILIRUBIN - DIPSTICK NEGATIVE (NEGATIVE); URINE BLOOD DIPSTICK SMALL (NEGATIVE); URINE COLOR YELLOW; URINE GLUCOSE - DIPSTICK NEGATIVE (NEGATIVE); URINE KETONE NEGATIVE (NEGATIVE); URINE LEUK ESTERASE NEGATIVE (NEGATIVE); URINE NITRITE - DIPSTICK NEGATIVE (Negative); URINE PH 6.5 (4.5-8.0); URINE PROTEIN - DIPSTICK >=300 mg/dL (NEG-TRACE); URINE UROBILINOGEN - DIPSTICK 0.2 E.U./dL (0.2)
[2020-05-27 23:05] LABS: URINE SQUAMOUS EPITHELIAL CELL FEW EPI/hpf (0-FEW); URINE WBC 0-2 WBC/hpf (0-5)
[2020-05-28] VITALS (24 sets, daily range): BP systolic 114–179; BP diastolic 60–113
--- NOTE | 2020-05-28 00:07 | NUR ---
REPORT PROVIDED TO RADHA TURCIOS IN ICU.
--- NOTE | 2020-05-28 00:38 | NUR ---
PT MEDICATED WITH APRESOLINE 20 IVP PER EDP ORDER PT CONTINUING TO BE HYPERTENSIVE. PT TOLERATED ADMINISTRATION WELL. HR 95
--- NOTE | 2020-05-28 00:52 | NUR ---
PT C/O SUDDEN ONSET OF LEFT LOWER LEG CRAMPING. PT MEDICATED FOR PAIN WITH MOTRIN PO PER MAR ORDER. TOLERATED ADMINSITRATION WELL. PT PLACED BACK INTO BED AND ELEVATED EXTREMITIES.
--- NOTE | 2020-05-28 01:05 | NUR ---
DR CARDOZO NOTIFIED OF CONTINUED HYPERTENSION. ORDER FOR DRIP CHANGE TO GINI PASCUAL.
--- NOTE | 2020-05-28 01:29 | NUR ---
BREATHING TREATMENT GIVEN.
--- NOTE | 2020-05-28 01:37 | NUR ---
CARDIGAILM DRIP D/C AND CARDENE INTIATED PER ORDER.
--- NOTE | 2020-05-28 01:40 | NUR ---
CARDENE GTT INITIATED AT 5 MG/HR. TOLERATING ADMINISTRATION WELL. ASPHALT PAVER IN PLACE. DENIES ANY NEEDS. ADVISED OF TRANSPORT TO INTENSIVE CARE. VERBALIZED UNDERSTANDING. PT CONTINUES WITH FEET ELEVATED.
--- NOTE | 2020-05-28 01:43 | NUR ---
PT UP TO BSC
--- NOTE | 2020-05-28 01:57 | NUR ---
29 yr old estonian female admitted to icu4 per stretcher from er. amb self to bed. bed weight obtained. o2 cont per nc. campus monitor shows sinus tach hr 105. #20 rac saline lock. #20 lac cardene gtt infusing @ 5mg/hr, ns infusing @ 20cchr. history obtained per pt & er record. oriented to room. fall precautions initiated.
--- NOTE | 2020-05-28 02:00 | NUR ---
Admission Note Report Given to: RADHA TURCIOS Transported by: Wheelchair X Stretcher Transported with: X Nurse Transporter X Patent IV X O2 X Pigskin Trimmer Location: X ICU MS2 PT TRANSPORTED TO ICU VIA STRETCHER WITH MONITOR, OXYGEN AND IV DRIP IN PLACE. RADHA TURCIOS AND NICOLE LOPEZ BEDSIDE TO RECEIVE PT. CARE TRANSFERED OVER. UPDATED REPORT PROVIDED.
--- NOTE | 2020-05-28 02:30 | NUR ---
bp 141/83. cate lawrence
--- NOTE | 2020-05-28 04:00 | NUR ---
awake. talking on cell phone. nad. traffic monitor specialist shows sinus rhythm hr 88.
[2020-05-28 04:52] LABS: HEMOGLOBIN 15.2 g/dl (12.0-16.0); IMMATURE GRANULOCYTES 1.1 % (0.0-5.0); MEAN CELL VOLUME 90.7 fL CALC (80.0-100.0); MEAN CORPUSCULAR HGB 28.1 pG CALC (26.0-32.0); NEUT# 13.89 thou/uL (2.00-7.15); RED BLOOD COUNT 5.4 mill/uL (4.20-5.60); RED CELL DISTRI WIDTH 16.2 % (11.5-15.5)
[2020-05-28 05:12] LABS: ANION GAP 12 (6-22 (CALC)); BUN 18 mg/dL (7-17); BUN/CREATININE RATIO 18 (12-20 (CALC)); CALCULATED LDLCHOLESTEROL 186 mg/dL (62-129 (CALC)); CARBON DIOXIDE 29 mmol/l (22-30); CHLORIDE 101 mmol/l (95-108); GFR > 60 ML/MIN (>=60 (CALC)); GFR FOR AFR.AMER. > 60 ML/MIN (>=60 (CALC)); HDL CHOLESTEROL 36 mg/dL (>=40); POTASSIUM 3.7 mmol/l (3.5-5.1); SODIUM 138 mmol/l (137-146); TOTAL TRIGLYCERIDES 205 mg/dl (30-149); VLDL CHOLESTROL 41 mg/dl (1-41 (CALC))
[2020-05-28 05:16] LABS: CHOLESTEROL HDL RATIO 7.3 (<4.4 (CALC)); TOTAL CHOLESTEROL 263 mg/dl (0-199)
--- NOTE | 2020-05-28 06:45 | NUR ---
REPORT RECEIVED FROM RADHA TURCIOS. CARE ASSUMED.
--- NOTE | 2020-05-28 07:30 | NUR ---
PT RESTING IN BED WITH EYES CLOSED. PT AROUSES EASILY TO VERBAL STIMULI. PT IS ALERT AND ORIENTED X3. SHIFT ASSESSMENT COMPLETED AT THIS TIME. IV PATENT X2. PT TEACHING GIVEN. EXPLAINED IMPORTANCE OF MEDICATION COMPLIANCE. CALL LIGHT IN REACH. WILL CONTINUE TO MONITOR.
--- NOTE | 2020-05-28 09:02 | NUR ---
DR ROSALES AT BEDSIDE AT THIS TIME
--- NOTE | 2020-05-28 09:08 | NUR ---
DR JORDAN NOTIFIED OF CARDIOLOGY CONSULT
--- NOTE | 2020-05-28 10:03 | NUR ---
PT RESTING IN BED AT THIS TIME. RESP ARE EVEN AND UNLABORED. NO DISTRESS NOTED. CALL LIGHT IN REACH. WILL ONTINUE TO [facility].
[2020-05-28] MEDS ORDERED: LASIX 40 MG TAB40 MG PO (11:13)
[2020-05-28] MEDS ORDERED: LISINOPRIL20 MG PO (11:14)
--- NOTE | 2020-05-28 12:16 | NUR ---
PT SITTING UP IN BED EATING LUNCH AT THIS TIME. NO DISTRESS NOTED. VSS ON MONITOR. CALL LIGHT IN REACH. WILL CONTINUE TO MONITOR.
--- NOTE | 2020-05-28 13:01 | NUR ---
NIGEL EMERSON APRN AT BEDSIDE AT THIS TIME
--- NOTE | 2020-05-28 14:52 | NUR ---
PT ASSISTED UP TO RECLINER AT BEDSIDE. O2 REMOVED. PT DESATS TO 88%. PLACED PT BACK ON O2. CALL LIGHT IN REACH. WILL CONTINUE TO MONITOR.
--- NOTE | 2020-05-28 16:30 | NUR ---
ASSUMED CARE. PT SITTING UP IN RECYLINER WATCHING TV. RESPIRATIONS ARE EVEN AND UNLABORED ON 2L NC, NO DISTRESS NOTED. SR 80 PER FINANCIAL SALES PROFESSIONAL. #20G IN RAC AND #20G IN LAC HEALTHY AND PATENT. PT DENIES OF ANY PAINS OR DISCOMFORTS. ALL SAFETY PRECAUTIONS ARE IN PLACE WITH CALL LIGHT IN REACH. WILL CONTINUE TO MONITOR.
--- NOTE | 2020-05-28 18:13 | NUR ---
PT RESTING IN CHAIR EATING DINNER. RESPIRATIONS ARE EVEN AND UNLABORED ON 2L NC. SR PER CARDIAC MONITORING. PT DENIES OF ANY PAINS OR DISCOMFORTS. ALL SAFETY PRECAUTIONS ARE IN PLACE. WILL CONTINUE TO MONITOR.
--- NOTE | 2020-05-28 20:06 | NUR ---
RECEIEVED REPORT FRO THIS PT AND INRECLINER CHAIR AT BEDSIDE. BP ELEVATEDX 174/104. BP MEDICATIONS GIVEN PRESCRIBED. PT DENIES PAIN OR DISCOMFORT. PT IS CONTINENT OF B/B AND GETS UP TO BSC WITH NO ASSIST NEEDED. ON LASIX THERAPY WITH NO ADVSRESE SIDE EFFECTS. +1 EDEMA NOTED IN BILAT LOWER EXTREMITIES. ENCOURAGED PT TO ELEVATE EXTREMITIES TOLERATED. DENIES SOB. OXYGEN THERAPY IN PLACE AT 2LNC WITH OXYGEN THERAPY 92-95%. WILL CONTINUE TO OBSERVE.
--- NOTE | 2020-05-28 23:00 | NUR ---
PT WAS MEDICATED WITH CLONIDINE 0.2MG FOR ELEVATED BP AND WILL MONITOR EFFECTIVE. PT SITTING UP IN BED WITH NO S/S OF DISTRESS NOTED. RESPIRATION EVEN AND NON LABORED. TOLERATING IV LASIX WITH NO COMPLICATIONS. HOB ELEVATED. OXYGEN THERAPY IN PLACE. CALL LIGHT WITHIN REACH AND WILL CONTINUE TO OBSERVE
[2020-05-29] VITALS (16 sets, daily range): BP systolic 117–180; BP diastolic 74–109
--- NOTE | 2020-05-29 02:04 | NUR ---
MD WAS CALLED DUE TO ELEVATED JAMMER HOOKER 180/98. PT DENIES PAIN OR DISCOMFORT. NEW ORDER FOR APRESOLINE PRN. ORDERS NOTED
--- NOTE | 2020-05-29 06:00 | NUR ---
BP CONTINUES TO BE ELEVATED AND COMPLAINED OF HEADACHE. WILL MEDICATE WILL CLONIDINE AND WILL NOTIFY MD FOR TYLENOL ORDER FOR HEADACHE. PT IN BED WITH EYES OPEN AND ABLE TO MAKE NEEDS KNOWN. WILL CONTINUE TO OBSERVE
[2020-05-29 06:20] LABS: ANION GAP 12 (6-22 (CALC)); BUN 18 mg/dL (7-17); BUN/CREATININE RATIO 18 (12-20 (CALC)); CARBON DIOXIDE 29 mmol/l (22-30); CHLORIDE 99 mmol/l (95-108); GFR > 60 ML/MIN (>=60 (CALC)); GFR FOR AFR.AMER. > 60 ML/MIN (>=60 (CALC)); POTASSIUM 4.2 mmol/l (3.5-5.1); SODIUM 136 mmol/l (137-146)
--- NOTE | 2020-05-29 06:45 | NUR ---
REPORT RECEIVED FROM LISANDRO LOPEZ. CARE ASSUMED.
--- NOTE | 2020-05-29 07:30 | NUR ---
PT SITTING UP ON SIDE OF BED. PT IS ALERT AND ORIENTED X3. PT ASSISTED UP TO RECLINER AT THIS TIME. SHIFT ASSESSMENT COMPLETED AT THIS TIME. IV PATENT X2. CALL LIGHT IN REACH. WILL CONTINUE TO MONITOR.
--- NOTE | 2020-05-29 09:30 | NUR ---
PT SITTING UP IN CHAIR IN ROOM. NO DISTRESS NOTED. NO COMPLAINTS VOICED. CALL LIGHT IN REACH. WILL CONTINUE TO MONITOR.
--- NOTE | 2020-05-29 10:31 | NUR ---
DR ROSALES AT BEDSIDE AT THIS TIME.
--- NOTE | 2020-05-29 11:55 | NUR ---
pt set up for noon meal at this time. no complaints voiced. no distress noted. call light in reach. will continue to monitor
--- NOTE | 2020-05-29 14:04 | NUR ---
PT MEDICATED AT THIS TIME WITH 1400 LASIX PER MAR. CALL LIGHT IN REACH. WILL CONTINUE TO MONTIOR.
--- NOTE | 2020-05-29 16:00 | NUR ---
PT SITTING UP IN CHAIR BATHING SELF AT THIS TIME. NO DISTRESS NOTED. CALL LIGHT IN REACH. WILL CO NTINUE TO MONITOR.
--- NOTE | 2020-05-29 17:47 | NUR ---
PT SITTING UP IN CHAIR EATING PM MEAL. VSS ON MONITOR. CALL LIGHT IN REACH. WILL CONTINUE TO MONITOR.
--- NOTE | 2020-05-29 21:50 | NUR ---
pt in bed with eyes closed. no s/s of distress. respiration even and non labored. oxygen therapy in place at 2lnc and humidification applied due to nose bleed. denies pain and discomfort. medications given and tolerated well. lasix iv was decreased to BID. pt made aware of plan of care. will continue to observe.
[2020-05-30] VITALS (8 sets, daily range): BP systolic 124–159; BP diastolic 70–98
--- NOTE | 2020-05-30 00:33 | NUR ---
pt in bed wth eyes closed. no s/s of distress noted. call light within reach. will continue to observe
[2020-05-30 06:12] LABS: HEMATOCRIT 52.6 % (37.0-47.0); HEMOGLOBIN 16.2 g/dl (12.0-16.0); MEAN CELL VOLUME 92.6 fL CALC (80.0-100.0); MEAN CORPUSCULAR HGB 28.5 pG CALC (26.0-32.0); MEAN CORPUSCULAR HGB CONC 30.8 g/dL CAL (32.0-36.0); RED BLOOD COUNT 5.68 mill/uL (4.20-5.60); RED CELL DISTRI WIDTH 16.2 % (11.5-15.5)
[2020-05-30 06:44] LABS: ANION GAP 12 (6-22 (CALC)); BUN 18 mg/dL (7-17); BUN/CREATININE RATIO 19 (12-20 (CALC)); CARBON DIOXIDE 30 mmol/l (22-30); CHLORIDE 99 mmol/l (95-108); GFR > 60 ML/MIN (>=60 (CALC)); GFR FOR AFR.AMER. > 60 ML/MIN (>=60 (CALC)); POTASSIUM 4.1 mmol/l (3.5-5.1); SODIUM 136 mmol/l (137-146)
--- NOTE | 2020-05-30 07:18 | NUR ---
PT REPORT RECEIVED FROM FRONT OFFICE SPEC, PT SLEEPING AT THIS TIME, NO COMPLAINTS NOTED, CALL LIGHT WITHIN REACH, TV ON.
--- NOTE | 2020-05-30 10:24 | NUR ---
WALK TEST OBTAINED PER ORDER. PT WAS 90% WHILE WALKING WITHOUT OXYGEN, WENT UP TO 95% AFTER REPLACING OXYGEN
--- NOTE | 2020-05-30 10:31 | NUR ---
PT RESTING QUIETLY ON CHAIR WATCHIN TV, VITAL SIGNS STABLE.
--- NOTE | 2020-05-30 11:45 | NUR ---
[facility] OXYGEN WALK TEST WITH DR. ROSALES AT BEDSIDE. 02 AT REST 94, SATURATION WHILE AMBULATING WITHOUT XYGEN IS 88% 02 SAT WILE AMBULATING WITH OXYGEN IS 95%
--- NOTE | 2020-05-30 11:50 | NUR ---
ACCUCHECK 94 NO INSULIN COVERAGE GIVEN
[2020-05-30] MEDS ORDERED: ATORVASTATIN CA10 MG PO (11:55)
[2020-05-30] MEDS ORDERED: LOSARTAN POTASS50 MG PO (11:56)
[2020-05-30] MEDS ORDERED: AMLODIPINE BESYL5 MG PO (11:56)
[2020-05-30] MEDS ORDERED: LASIX 40 MG TAB40 MG PO (11:57)
[2020-05-30] MEDS ORDERED: ASPIRIN ADULT L81 M2 PO (11:57)
[2020-05-30] MEDS ORDERED: COREG12.5 MG PO (11:57)
--- NOTE | 2020-05-30 13:49 | NUR ---
GAVE OXYGEN WALK TEST TO INDUSTRIAL ELECTRICIAN JOURNEYMAN, STATES IT COULD BE SEVERAL HOURS TIL SHE CAN GET THE OXYGEN SET UP WILL LET US KNOW. PT INFORMED, VOICES UNDERSTANDING.
--- NOTE | 2020-05-30 14:55 | NUR ---
ADVISED PT THAT WE ARE STILL WAITING FOR CASE MANAGEMENT TO OBTAIN OXYGEN FOR PT TO BE ABLE TO USE AT HOME
--- NOTE | 2020-05-30 16:15 | NUR ---
ADVISED PT THAT COMPANY THAT IS BRINGING HER OXYGEN TANK FOR HOME DISCHARGE IS IN [place] AND WILL BE COMING UP SOON POSSIBLE, THEN WE CAN DISCHARGE AFTER THEY GET HERE.
--- NOTE | 2020-05-30 18:08 | NUR ---
[facility] HERE WITH OXYGEN TANK FOR PT AND INST. IV D/C'D AND PT INSTRUCTIONS GIVEN AND SIGNED.
--- NOTE | 2020-05-30 18:24 | NUR ---
PT DISCHARGED WITH INST. AND PLACED INW/C AND TAKEN TO ER PARKING LOT FOR RPG PROGRAMMER.
== END 2020-05-30 18:20 | disposition home or self-care (01) | DRG 291 ==
LOC: ED 20:33 → ED-I 21:52 → ED 23:22 → ICU 23:23
PROVIDERS: Family Medicine; ADMIT Internal Medicine; ATTEND Internal Medicine
DX: I11.0 Hypertensive heart disease with heart failure (principal); J96.21 Acute and chronic respiratory failure with hypoxia; Z68.42 Body mass index [BMI] 45.0-49.9, adult; I50.23 Acute on chronic systolic (congestive) heart failure; I16.0 Hypertensive urgency; I48.0 Paroxysmal atrial fibrillation; E78.5 Hyperlipidemia, unspecified; E66.01 Morbid (severe) obesity due to excess calories; R73.03 Prediabetes; G47.33 Obstructive sleep apnea (adult) (pediatric); Z20.822 Contact with and (suspected) exposure to COVID-19
CPT/HCPCS: J1650

== ENCOUNTER 2021-04-29 20:32 | Emergency (ER) | payer MEDICAID ==
[~2021-04-29 20:32] MED LIST changes: +ASPIRIN ADULT L81 M2 PO; +ATORVASTATIN CA10 MG PO; +COREG12.5 MG PO; +LISINOPRIL20 MG PO; +LOSARTAN POTASS50 MG PO
== END 2021-04-29 20:58 | disposition left against medical advice (07) | DRG 951 ==
LOC: ED 20:32 → LWOBS 20:58
DX: Z53.21 Procedure and treatment not carried out due to patient leaving prior to being seen by health care provider (principal)

== ENCOUNTER 2021-11-06 07:29 | Emergency (ER) | payer MEDICAID ==
[2021-11-06] VITALS (28 sets, daily range): BP systolic 87–229; BP diastolic 54–143
[~2021-11-06] VITALS: Ht 162.6 cm; Wt 136.0 kg
[2021-11-06 08:10] LABS: HEMATOCRIT 51.5 % (37.0-47.0); HEMOGLOBIN 16.8 g/dl (12.0-16.0); IMMATURE GRANULOCYTES 0.5 % (0.0-5.0); MEAN CELL VOLUME 93.6 fL CALC (80.0-100.0); MEAN CORPUSCULAR HGB 30.5 pG CALC (26.0-32.0); MEAN CORPUSCULAR HGB CONC 32.6 g/dL CAL (32.0-36.0); NEUT# 8.53 thou/uL (2.00-7.15); RED BLOOD COUNT 5.5 mill/uL (4.20-5.60); RED CELL DISTRI WIDTH 12.9 % (11.5-15.5)
[2021-11-06] MEDS ORDERED: FUROSEMIDE20 MG PO (08:19)
[2021-11-06] MEDS ORDERED: CARVEDILOL6.25 MG PO (08:20)
[2021-11-06] MEDS ORDERED: KLOR-CON M2020 MEQ PO (08:20)
[2021-11-06] MEDS ORDERED: FLOVENT HF220 MCG/AC IN (08:21)
[2021-11-06] MEDS ORDERED: SPIRONOLACTONE25 MG PO (08:21)
[2021-11-06] MEDS ORDERED: NORVASC5 M1 PO (08:22)
[2021-11-06] MEDS ORDERED: PRILOSEC20 MG/CAP PO (08:23)
[2021-11-06] MEDS ORDERED: LIPOFEN50 MG PO (08:24)
[2021-11-06] MEDS ORDERED: FLOVENT DI50 MCG/BLI (08:25)
[2021-11-06] MEDS ORDERED: METFORMIN500 M2 PO (08:25)
[2021-11-06] MEDS ORDERED: PROAIR HFA108 MCG/AC (08:26)
[2021-11-06] MEDS ORDERED: PAROXETINE10 MG PO (08:26)
[2021-11-06 08:27] LABS: ALBUMIN 3.8 g/dL (3.2-5.0); ALKALINE PHOSPHATASE 87 u/l (38-126); ANION GAP 9 (6-22 (CALC)); BUN 12 mg/dL (7-17); BUN/CREATININE RATIO 14 (12-20 (CALC)); CARBON DIOXIDE 28 mmol/l (22-30); CHLORIDE 104 mmol/l (95-108); CREATININE 0.8 mg/dL (0.5-1.0); GFR FOR AFR.AMER. > 60 ML/MIN (>=60 (CALC)); GFR OTHER RACES > 60 ML/MIN (>=60 (CALC)); POTASSIUM 4.1 mmol/l (3.5-5.1); SGOT/AST 28 u/l (14-36); SODIUM 137 mmol/l (137-146); TOTAL PROTEIN 7.7 g/dL (6.3-8.2)
[2021-11-06] MEDS ORDERED: ALL DAY ALLG10 MG PO (08:27)
[2021-11-06 08:46] LABS: BILIRUBIN, TOTAL 0.5 mg/dL (0.0-1.4)
[2021-11-06 09:09] LABS: MYOGLOBIN 24 ng/mL (0 - 62)
== END 2021-11-06 13:45 | disposition home or self-care (01) ==
LOC: ED 07:29
PROVIDERS: Family Medicine
DX: I16.0 Hypertensive urgency (principal); I11.0 Hypertensive heart disease with heart failure; I50.9 Heart failure, unspecified; I48.91 Unspecified atrial fibrillation; E66.01 Morbid (severe) obesity due to excess calories; Z68.42 Body mass index [BMI] 45.0-49.9, adult

== ENCOUNTER 2021-12-13 07:09 | Emergency (ER) | payer MEDICAID ==
[2021-12-13] VITALS (19 sets, daily range): BP systolic 190–228; BP diastolic 121–154
[~2021-12-13] VITALS: Ht 162.6 cm; Wt 136.3 kg
[~2021-12-13 07:09] MED LIST changes: +ALL DAY ALLG10 MG PO; +CARVEDILOL6.25 MG PO; +FLOVENT DI50 MCG/BLI; +FLOVENT HF220 MCG/AC IN; +FUROSEMIDE20 MG PO; +KLOR-CON M2020 MEQ PO; +LIPOFEN50 MG PO; +METFORMIN500 M2 PO; +NORVASC5 M1 PO; +PAROXETINE10 MG PO; +PRILOSEC20 MG/CAP PO; +PROAIR HFA108 MCG/AC
[2021-12-13 07:54] LABS: IMMATURE GRANULOCYTES 0.3 % (0.0-5.0); MEAN CELL VOLUME 90.6 fL CALC (80.0-100.0); MEAN CORPUSCULAR HGB 30.2 pG CALC (26.0-32.0); MEAN CORPUSCULAR HGB CONC 33.3 g/dL CAL (32.0-36.0); NEUT# 11.8 thou/uL (2.00-7.15); RED BLOOD COUNT 5.63 mill/uL (4.20-5.60); RED CELL DISTRI WIDTH 13.4 % (11.5-15.5)
[2021-12-13 08:13] LABS: ALBUMIN 4.4 g/dL (3.2-5.0); ALKALINE PHOSPHATASE 86 u/l (38-126); ANION GAP 14 (6-22 (CALC)); BILIRUBIN, TOTAL 0.7 mg/dL (0.0-1.4); BUN 13 mg/dL (7-17); BUN/CREATININE RATIO 14 (12-20 (CALC)); CARBON DIOXIDE 27 mmol/l (22-30); CHLORIDE 102 mmol/l (95-108); CREATININE 0.9 mg/dL (0.5-1.0); GFR FOR AFR.AMER. > 60 ML/MIN (>=60 (CALC)); GFR OTHER RACES > 60 ML/MIN (>=60 (CALC)); POTASSIUM 4.3 mmol/l (3.5-5.1); SGOT/AST 30 u/l (14-36); SODIUM 138 mmol/l (137-146); TOTAL PROTEIN 8.2 g/dL (6.3-8.2)
[2021-12-13 08:37] LABS: URINE BILIRUBIN - DIPSTICK NEGATIVE (NEGATIVE); URINE BLOOD DIPSTICK SMALL (NEGATIVE); URINE COLOR YELLOW; URINE GLUCOSE - DIPSTICK NEGATIVE (NEGATIVE); URINE KETONE NEGATIVE (NEGATIVE); URINE LEUK ESTERASE NEGATIVE (NEGATIVE); URINE PROTEIN - DIPSTICK >=300 mg/dL (NEG-TRACE); URINE SPECIFIC GRAVITY 1.025; URINE UROBILINOGEN - DIPSTICK 0.2 E.U./dL (0.2)
[2021-12-13 08:40] LABS: URINE NITRITE - DIPSTICK NEGATIVE (Negative)
[2021-12-13 08:43] LABS: URINE BACTERIA MANY hpf
[2021-12-13 08:45] LABS: URINE SQUAMOUS EPITHELIAL CELL MANY EPI/hpf (0-FEW)
[2021-12-13] MEDS ORDERED: AMLODIPINE BESY10 MG PO (09:52)
[2021-12-13] MEDS ORDERED: LISINOPRIL20 M1 PO (09:52)
== END 2021-12-13 10:07 | disposition left against medical advice (07) ==
LOC: ED 07:09
PROVIDERS: Family Medicine
DX: I16.0 Hypertensive urgency (principal); I11.0 Hypertensive heart disease with heart failure; I50.9 Heart failure, unspecified; I48.91 Unspecified atrial fibrillation; E66.9 Obesity, unspecified; Z91.19 Patient's noncompliance with other medical treatment and regimen; Z20.822 Contact with and (suspected) exposure to COVID-19

== ENCOUNTER 2022-04-14 10:39 | Emergency (ER) | payer MEDICAID ==
[~2022-04-14] VITALS: Ht 162.6 cm; Wt 143.0 kg
[2022-04-14] VITALS (21 sets, daily range): BP systolic 108–200; BP diastolic 62–144
[~2022-04-14 10:39] MED LIST changes: +AMLODIPINE BESY10 MG PO; +LISINOPRIL20 M1 PO
[2022-04-14] MEDS ORDERED: LOSARTAN POTASS50 MG PO (11:02)
[2022-04-14] MEDS ORDERED: NITROGLYCERIN0.4 MG (11:03)
[2022-04-14] MEDS ORDERED: FUROSEMIDE20 MG PO (11:04)
[2022-04-14 11:05] LABS: BASO% 0.2 % (0-3); EOS% 2.6 % (0-8); HEMATOCRIT 53.9 % (37.0-47.0); HEMOGLOBIN 17.7 g/dl (12.0-16.0); IMMATURE GRANULOCYTES 0.4 % (0.0-5.0); LYMPH% 12.7 % (15-41); MEAN CELL VOLUME 91.7 fL CALC (80.0-100.0); MEAN CORPUSCULAR HGB 30.1 pG CALC (26.0-32.0); MEAN CORPUSCULAR HGB CONC 32.8 g/dL CAL (32.0-36.0); MONO% 5.3 % (2-13); NEUT# 9.96 thou/uL (2.00-7.15); NEUT% 78.8 % (42-76); RED BLOOD COUNT 5.88 mill/uL (4.20-5.60); RED CELL DISTRI WIDTH 14.8 % (11.5-15.5)
[2022-04-14 11:18] LABS: ALKALINE PHOSPHATASE 67 u/l (38-126); ANION GAP 10 (6-22 (CALC)); BUN 18 mg/dL (7-17); BUN/CREATININE RATIO 17 (12-20 (CALC)); CARBON DIOXIDE 28 mmol/l (22-30); CHLORIDE 104 mmol/l (95-108); GFR FOR AFR.AMER. > 60 ML/MIN (>=60 (CALC)); GFR OTHER RACES > 60 ML/MIN (>=60 (CALC)); POTASSIUM 4.6 mmol/l (3.5-5.1); SGOT/AST 36 u/l (14-36); SODIUM 137 mmol/l (137-146); TOTAL PROTEIN 7.7 g/dL (6.3-8.2)
[2022-04-14 11:20] LABS: BILIRUBIN, TOTAL 0.4 mg/dL (0.0-1.4)
== END 2022-04-14 15:21 | disposition left against medical advice (07) ==
LOC: ED 10:39
PROVIDERS: Family Medicine
DX: R07.9 Chest pain, unspecified (principal); I11.0 Hypertensive heart disease with heart failure; I50.9 Heart failure, unspecified; E11.9 Type 2 diabetes mellitus without complications; E66.01 Morbid (severe) obesity due to excess calories; I48.91 Unspecified atrial fibrillation; Z79.84 Long term (current) use of oral hypoglycemic drugs; Z53.29 Procedure and treatment not carried out because of patient's decision for other reasons

== ENCOUNTER 2022-06-11 13:13 | Inpatient (IN) | payer MEDICAID ==
[~2022-06-11] VITALS: Ht 162.6 cm; Wt 128.4 kg
[~2022-06-11 13:13] MED LIST changes: +NITROGLYCERIN0.4 MG
--- NOTE | 2022-06-11 13:15 | NUR ---
PATIENT PLACED IN ROOM 8 FOR ASSESSMENT OF SOB WITH RIGHT CALF PAIN FOR 4 DAYS.
--- NOTE | 2022-06-11 13:25 | NUR ---
IV ACCESS OBTAINED AND BLOOD COLLECTED. PATIENT IN NO RESPIRATORY DISTRESS. SKIN WARM AND DRY. LUNG SOUNDS CLEAR TO ASCULTATION. PS02 98% ON RA.
[2022-06-11] MEDS ORDERED: ATORVASTATIN CA80 MG PO (14:05)
[2022-06-11] MEDS ORDERED: VITAMIN D7 XX (14:07)
--- NOTE | 2022-06-11 14:30 | NUR ---
PATIENT RESTING. NO DISTRESS.
[2022-06-11 14:34] LABS: BASO% 0.4 % (0-3); EOS% 1.2 % (0-8); HEMATOCRIT 57.7 % (37.0-47.0); HEMOGLOBIN 17.8 g/dl (12.0-16.0); IMMATURE GRANULOCYTES 0.2 % (0.0-5.0); LYMPH% 12.8 % (15-41); MEAN CELL VOLUME 93.4 fL CALC (80.0-100.0); MEAN CORPUSCULAR HGB 28.8 pG CALC (26.0-32.0); MEAN CORPUSCULAR HGB CONC 30.8 g/dL CAL (32.0-36.0); MONO% 5.1 % (2-13); NEUT# 10.78 thou/uL (2.00-7.15); NEUT% 80.3 % (42-76); RED BLOOD COUNT 6.18 mill/uL (4.20-5.60); RED CELL DISTRI WIDTH 15.2 % (11.5-15.5)
[2022-06-11 14:46] LABS: ALBUMIN 3.5 g/dL (3.2-5.0); CREATININE 1.5 mg/dL (0.5-1.0); POTASSIUM 4.5 mmol/l (3.5-5.1)
[2022-06-11 14:55] LABS: BILIRUBIN, TOTAL 0.8 mg/dL (0.02-1.3)
--- NOTE | 2022-06-11 15:58 | NUR ---
PATIENT TAKEN TO RADIOLOGY AT THIS TIME.
[2022-06-11 16:12] VITALS: BP 197/134
--- NOTE | 2022-06-11 16:37 | NUR ---
VERBAL REPORT CALLED TO RECEIVING NURSE SILVA. PATIENT TRANSPORTED TO THE FLOOR.
[2022-06-11 17:15] VITALS: BP 189/110
--- NOTE | 2022-06-11 17:15 | NUR ---
RECEIVE PATIENT FROM ER. REPORT FROM [facility] ER NURSE. PATIENT ALERT AND ORIENTED X3. ASSESSMENT HEAD-TO TOE COMPLETE. PATIENT WITH EDEMA IN THE LEG'S BILATERAL. PATIENT IS EDUCATED ABOUD ADMISSION, MEDICATIONS AND NURSING PLAN. PT REFER UNSERSTAND. SAFETY AND FALL PRECAUTIONS IN PLACE. CALL LIGHT WITHIN IN REACH.
[2022-06-11 18:09] VITALS: BP 182/115
--- NOTE | 2022-06-11 20:13 | NUR ---
pt had a glucose of 140 @2000.
[2022-06-11 23:12] VITALS: BP 185/121
[2022-06-12] VITALS (12 sets, daily range): BP systolic 155–189; BP diastolic 99–124
[2022-06-12 04:32] LABS: HEMATOCRIT 53.3 % (37.0-47.0); HEMOGLOBIN 16.6 g/dl (12.0-16.0); MEAN CELL VOLUME 92.7 fL CALC (80.0-100.0); MEAN CORPUSCULAR HGB 28.9 pG CALC (26.0-32.0); MEAN CORPUSCULAR HGB CONC 31.1 g/dL CAL (32.0-36.0); RED BLOOD COUNT 5.75 mill/uL (4.20-5.60); RED CELL DISTRI WIDTH 15.1 % (11.5-15.5)
[2022-06-12 04:44] LABS: ALBUMIN 3.3 g/dL (3.2-5.0); CREATININE 1.3 mg/dL (0.5-1.0); MAGNESIUM 1.6 mg/dL (1.6-2.3); POTASSIUM 4.1 mmol/l (3.5-5.1); TOTAL PROTEIN 6.1 g/dL (6.3-8.2)
--- NOTE | 2022-06-12 07:46 | NUR ---
PT RESTING IN HIGH FOWLERS POSITION A/OX3 ASSESSMENT AND VSCOMPLETED.HEART RHYTHM,ON TELE RESPIRATIONS ON ROOM AIR IV SITE NOTED PTDENIES ADDITIONAL NEEDS AT THE TIMEALL SAFETY PRECAUTIONS IN PLACEWITH CALLLIGHT INREACH.
--- NOTE | 2022-06-12 11:40 | NUR ---
BOOKED A CARDIOLOGY CONSULT WITH DR JOSEPH [facility]IA [facility] AT 1139 HRS.
--- NOTE | 2022-06-12 13:03 | NUR ---
PT CARDIOLOGY CONSULT COMPLETED.ECHO DONE TODAY.PT DENIES ADDITIONAL NEEDS AT THETIME.
--- NOTE | 2022-06-12 16:34 | NUR ---
PT BP MEDICATION PROVIDED PER RN.
--- NOTE | 2022-06-12 20:05 | NUR ---
PT RESTING C/O NO PAIN AT THE MOMENT, CALL LIGHT WITHIN REACHED, WILL CONT TO MONITOR
[2022-06-13] VITALS (8 sets, daily range): BP systolic 132–198; BP diastolic 85–130
--- NOTE | 2022-06-13 01:23 | NUR ---
PT C/O OF LOWER THIGN PAIN, TYLENOL 650 MG PO Q6H PRN WAS GIVEN, WILL REASSESS CALL LIGHT WITHIN REACHED, WILL CONT TO MONITOR
--- NOTE | 2022-06-13 08:05 | NUR ---
PT LASIX WAS GIVEN, PAIN WAS MANAGED, CALL LIGHT WITHIN REACHED WILL CONT TO MONITOR
[2022-06-13 08:32] LABS: HEMATOCRIT 59.2 % (37.0-47.0); HEMOGLOBIN 18.5 g/dl (12.0-16.0); MEAN CELL VOLUME 91.8 fL CALC (80.0-100.0); MEAN CORPUSCULAR HGB 28.7 pG CALC (26.0-32.0); MEAN CORPUSCULAR HGB CONC 31.3 g/dL CAL (32.0-36.0); RED BLOOD COUNT 6.45 mill/uL (4.20-5.60); RED CELL DISTRI WIDTH 15.6 % (11.5-15.5)
[2022-06-13 08:46] LABS: ALBUMIN 3.6 g/dL (3.2-5.0); BILIRUBIN, TOTAL 0.7 mg/dL (0.02-1.3); CREATININE 1.5 mg/dL (0.5-1.0); MAGNESIUM 1.8 mg/dL (1.6-2.3); POTASSIUM 3.9 mmol/l (3.5-5.1); TOTAL PROTEIN 6.8 g/dL (6.3-8.2)
--- NOTE | 2022-06-13 12:00 | NUR ---
PATIENT RESTING IN BED AWAKE ALERT AND ORIENTED, PATIENT NOTED WITH CONTINUED ELEVATED BP, MD AWARE, PATIENT TOLERATING MEDICATIONS WELL, SAFETY PRECAUTIONS IN PLACE.
--- NOTE | 2022-06-13 19:58 | NUR ---
PT AX4 RESTING WATCHING TV, BASIC NEEDS MET, CALL LIGHT WITHIN REACHED, WILL CONT TO MONITOR
[2022-06-14] VITALS (7 sets, daily range): BP systolic 97–159; BP diastolic 57–111
[2022-06-14 05:47] LABS: HEMATOCRIT 57.5 % (37.0-47.0); HEMOGLOBIN 18.1 g/dl (12.0-16.0); MEAN CELL VOLUME 92.1 fL CALC (80.0-100.0); MEAN CORPUSCULAR HGB CONC 31.5 g/dL CAL (32.0-36.0); RED BLOOD COUNT 6.24 mill/uL (4.20-5.60); RED CELL DISTRI WIDTH 15.6 % (11.5-15.5)
--- NOTE | 2022-06-14 05:54 | NUR ---
PT BP IS BEEN MONITORING AND MED GIVEN, CALL LIGHT WITHIN REACED WILL CONT TO MONITOR
[2022-06-14 06:10] LABS: ALBUMIN 3.6 g/dL (3.2-5.0); BILIRUBIN, TOTAL 0.9 mg/dL (0.02-1.3); CREATININE 1.6 mg/dL (0.5-1.0); MAGNESIUM 1.8 mg/dL (1.6-2.3); POTASSIUM 3.9 mmol/l (3.5-5.1); TOTAL PROTEIN 6.7 g/dL (6.3-8.2)
--- NOTE | 2022-06-14 07:30 | NUR ---
REPORT RECEIVED FROM NIGHT NURSE. PT SITTING UP ON EDGE OF BED FOR BREAKFAST; ALERT AND ORIENTED X 3. DENIES PAIN; DENIES SOB. LUNGS ARE CLEAR; NON PITTING PEDAL EDEMA. TELE ON. IV SITE APPEARS HEALTHY; SALINE LOCKED. PLAN OF CARE REVIEWED. PT ENCOURAGED TO VERBALIZE CONCERNS; STATES UNDERSTANDING. INDEPENDENT TO BATHROOM. SAFETY MEASURES IN PLACE; CALL LIGHT WITHIN REACH.
--- NOTE | 2022-06-14 10:05 | NUR ---
AFTER AM MEDICATIONS F/U BLOOD PRESSURE IS 97/82 HR 73. PT C/O OF WEAKNESS AND FEELING DIZZY. OXYGEN 89-90% ON ROOM AIR; PT REPORTS WEARING OXYGEN AT HOME AT HS. NOTIFIED; WILL CONTINUE TO MONITOR.
--- NOTE | 2022-06-14 11:15 | NUR ---
BLOOD PRESSURE IS IMPROVING SBP 106 AND PT REPORTS THAT DIZZINESS HAS SUBSIDED. SPO2 REMAINS 89% WHILE RESTING IN BED; 2L O2 VIA NC APPLIED. PT HAS NO OTHER REQUESTS OR CONCERNS AT THIS TIME.
--- NOTE | 2022-06-14 15:00 | NUR ---
SITTING UP ON EDGE OF BED WITH FAMILY MEMBER AT BEDSIDE. SBP 136; PT REPORTS THAT SHE IS FEELING BETTER. CONTINUES TO WEAR OXYGEN 2L VIA NC. SCHEDULED APRESOLINE GIVEN. NO REQUESTS OR CONCERNS AT THIS TIME. CALL LIGHT WITHIN REACH.
--- NOTE | 2022-06-14 20:15 | NUR ---
PT RESTING IN BED, NO SIGNS OF DISTRESS NOTED, RESP EVEN AND UNLABORED. PT ALERT AND ORIENTED X4, DISCUSSED POC, VERBALIZED UNDERSTANDING. HAT PLACED IN TOILET EDUCATED PT IMPORTANCE OF INTAKE AND OUTPUT AND DAILY WT, VERBALIZED UNDERSTANDING. SKIN INTACT. IV FLUSHED WELL. PER MD NOTED, PT BP MEDS NEED TO BE SPREAD OUT, PT MEDICATED PER MAR. ASSESSMENT COMPLETED, CALL LIGHT IN REACH,CONTINUE TO MONITOR.
--- NOTE | 2022-06-15 | NUR ---
PT RESTING IN BED, NO SIGNS OF DISTRESS NOTED, RESP EVEN AND UNLABORED, DENIES ANY NEEDS OR COMPLAINTS AT THIS TIME. CALL LIGHT IN REACH,CONTINUE TO MONITOR.
[2022-06-15 00:32] VITALS: BP 108/75
[2022-06-15 03:35] VITALS: BP 139/99
--- NOTE | 2022-06-15 04:00 | NUR ---
PT RESTING IN BED, NO SIGNS OF DISTRESS NOTED, RESP EVEN AND UNLABORED. DENIES ANY NEEDS OR COMPLAINTS AT THIS TIME, CALL LIGHT IN REACH,CONTINUE TO MONITOR.
[2022-06-15 05:31] LABS: BASO% 0.6 % (0-3); HEMATOCRIT 57.3 % (37.0-47.0); HEMOGLOBIN 18.2 g/dl (12.0-16.0); IMMATURE GRANULOCYTES 0.2 % (0.0-5.0); LYMPH% 17.1 % (15-41); MEAN CELL VOLUME 92.4 fL CALC (80.0-100.0); MEAN CORPUSCULAR HGB 29.4 pG CALC (26.0-32.0); MEAN CORPUSCULAR HGB CONC 31.8 g/dL CAL (32.0-36.0); MONO% 6.9 % (2-13); NEUT# 8.15 thou/uL (2.00-7.15); NEUT% 71.2 % (42-76); RED BLOOD COUNT 6.2 mill/uL (4.20-5.60); RED CELL DISTRI WIDTH 15.8 % (11.5-15.5)
[2022-06-15 05:40] VITALS: BP 126/85
[2022-06-15 05:44] LABS: ALBUMIN 3.7 g/dL (3.2-5.0); BILIRUBIN, TOTAL 0.8 mg/dL (0.02-1.3); CREATININE 1.7 mg/dL (0.5-1.0); POTASSIUM 3.9 mmol/l (3.5-5.1); TOTAL PROTEIN 6.6 g/dL (6.3-8.2)
--- NOTE | 2022-06-15 07:15 | NUR ---
REPORT RECEIVED FROM KAROLINA VERDIN. PT RESTING IN BED ON RIGHT SIDE; ALERT AND ORIENTED. DENIES PAIN. RESPIRATIONS EVEN AND UNLABORED ON ROOM AIR; DENIES SOB. TELE ON. IV SITE APPEARS HEALTHY AND FLUSHES; SALINE LOCKED. PLAN OF CARE REVIEWED. PT ENCOURAGED TO VERBALIZE CONCERNS; STATES UNDERSTANDING. SAFETY MEASURES IN PLACE; CALL LIGHT WITHIN REACH.
--- NOTE | 2022-06-15 10:00 | NUR ---
AM BLOOD PRESSURE MEDICATIONS SPACED OUT OVER 2 HOURS TO AVOID HYPOTENSION WITH GOOD EFFECT. PT HAS NO REQUESTS OR CONCERNS AT THIS TIME. INDEPENDENT IN ROOM.
--- NOTE | 2022-06-15 12:00 | NUR ---
DR. OZUNA AT BEDSIDE.
[2022-06-15 14:28] VITALS: BP 118/93
--- NOTE | 2022-06-15 15:00 | NUR ---
APRESOLINE GIVEN NOW; BLOOD PRESSURE INCREASES WITH EXERTION. DENIES ANY SOB OR DIZZINESS. CALL LIGHT WITHIN REACH.
[2022-06-15 17:44] VITALS: BP 120/78
--- NOTE | 2022-06-15 20:49 | NUR ---
PT RESTING IN BED, NO SIGNS OF DISTRESS NOTED, RESP EVEN AND UNLABORED. PT ALERT AND ORIENTED X4, DISCUSSED POC, PT VERBALIZED UNDERSTANDING. TRACE EDEMA NOTED TO BLE, PT STATES IT IS BETTER. PT MEDICATED PER MAR, PER MD BP MEDICATIONS TO BE GIVEN SPREAD OUT. PT AGREED. ASSESSMENT COMPLETED, CALL LIGHT IN REACH,CONTINUE TO MONITOR.
--- NOTE | 2022-06-15 22:15 | NUR ---
PT RETURNING FROM BATHROOM, NOTED PT LIMPING, PT STATES SHE IS HAVING MUSCLE SPASMS IN HER LEGS BILAT. ATTEMPTED TO PLACE COMPRESSION STOCKINGS, PT UNABLE TO TOLERATE. NOTIFIED AND ORDER OBTAINED. ASSISTED PT TO BED, CALL LIGHT IN REACH,CONTINUE TO MONITOR.
[2022-06-15 22:41] VITALS: BP 133/79
--- NOTE | 2022-06-16 | NUR ---
PT RESTING IN BED, VSS, PT STATES SHE IS FEELING BETTER, NO SIGNS OF DISTRESS NOTED, RESP EVEN AND UNLABORED. DENIES ANY NEEDS OR COMPLAINTS AT THIS TIME. CALL LIGHT IN REACH,CONTINUE TO MONITOR.
[2022-06-16 02:50] VITALS: BP 130/83
--- NOTE | 2022-06-16 04:00 | NUR ---
PT RESTING IN BED, NO SIGNS OF DISTRESS NOTED, RESP EVEN AND UNLABORED. CALL LIGHT IN REACH,CONTINUE TO MONITOR.
[2022-06-16 05:17] LABS: BASO% 0.5 % (0-3); EOS% 3.8 % (0-8); HEMATOCRIT 57.3 % (37.0-47.0); HEMOGLOBIN 17.5 g/dl (12.0-16.0); IMMATURE GRANULOCYTES 0.6 % (0.0-5.0); LYMPH% 16.4 % (15-41); MEAN CELL VOLUME 93.3 fL CALC (80.0-100.0); MEAN CORPUSCULAR HGB 28.5 pG CALC (26.0-32.0); MEAN CORPUSCULAR HGB CONC 30.5 g/dL CAL (32.0-36.0); MONO% 7.9 % (2-13); NEUT# 8.35 thou/uL (2.00-7.15); NEUT% 70.8 % (42-76); RED BLOOD COUNT 6.14 mill/uL (4.20-5.60); RED CELL DISTRI WIDTH 15.4 % (11.5-15.5)
[2022-06-16 05:26] LABS: ALBUMIN 3.5 g/dL (3.2-5.0); BILIRUBIN, TOTAL 0.8 mg/dL (0.02-1.3); CREATININE 1.8 mg/dL (0.5-1.0); POTASSIUM 4.1 mmol/l (3.5-5.1); TOTAL PROTEIN 6.4 g/dL (6.3-8.2)
[2022-06-16 05:50] VITALS: BP 125/76
[2022-06-16 07:18] VITALS: BP 125/76
--- NOTE | 2022-06-16 07:30 | NUR ---
PT RESTING IN BED. NO COMPLAINTS/DISTRESS AT THIS TIME. WILL CONTINUE TO MONITOR.
[2022-06-16 09:30] VITALS: BP 117/81
[2022-06-16 09:31] VITALS: BP 125/76
[2022-06-16] MEDS ORDERED: CLONIDINE HCL0.1 MG PO (09:59)
[2022-06-16] MEDS ORDERED: LISINOPRIL20 M1 PO (10:00)
[2022-06-16] MEDS ORDERED: CARVEDILOL25 MG PO (10:00)
[2022-06-16] MEDS ORDERED: APRESOLINE50 MG PO (10:01)
--- NOTE | 2022-06-16 14:23 | NUR ---
IV REMOVED. PT AMBUALTORY EXIT WITH FAMILY MEMBER.
== END 2022-06-16 14:20 | disposition home or self-care (01) | DRG 291 ==
LOC: ED 13:13 → ED-I 15:28 → ED 15:53 → MS2 15:54
PROVIDERS: Family Medicine; Internal Medicine; ADMIT Internal Medicine; ATTEND Internal Medicine
DX: I13.0 Hypertensive heart and chronic kidney disease with heart failure and stage 1 through stage 4 chronic kidney disease, or unspecified chronic kidney disease (principal); I50.23 Acute on chronic systolic (congestive) heart failure; E87.1 Hypo-osmolality and hyponatremia; Z68.42 Body mass index [BMI] 45.0-49.9, adult; E11.22 Type 2 diabetes mellitus with diabetic chronic kidney disease; N18.9 Chronic kidney disease, unspecified; I48.91 Unspecified atrial fibrillation; I43 Cardiomyopathy in diseases classified elsewhere; E66.01 Morbid (severe) obesity due to excess calories; G47.30 Sleep apnea, unspecified; E78.5 Hyperlipidemia, unspecified; T50.1X6A Underdosing of loop [high-ceiling] diuretics, initial encounter; Z91.128 Patient's intentional underdosing of medication regimen for other reason; Z79.84 Long term (current) use of oral hypoglycemic drugs; Z20.822 Contact with and (suspected) exposure to COVID-19
CPT/HCPCS: J1650

== ENCOUNTER 2022-09-03 13:54 | Emergency (ER) | payer MEDICAID ==
[2022-09-03] VITALS (25 sets, daily range): BP systolic 160–242; BP diastolic 97–171
[~2022-09-03] VITALS: Ht 160 cm; Wt 136.0 kg
[~2022-09-03 13:54] MED LIST changes: +APRESOLINE50 MG PO; +CLONIDINE HCL0.1 MG PO; +VITAMIN D7 XX
[2022-09-03 14:22] LABS: BASO% 0.3 % (0-3); EOS% 1.4 % (0-8); HEMATOCRIT 51.5 % (37.0-47.0); HEMOGLOBIN 16.6 g/dl (12.0-16.0); IMMATURE GRANULOCYTES 0.7 % (0.0-5.0); LYMPH% 8.9 % (15-41); MEAN CELL VOLUME 93.3 fL CALC (80.0-100.0); MEAN CORPUSCULAR HGB 30.1 pG CALC (26.0-32.0); MEAN CORPUSCULAR HGB CONC 32.2 g/dL CAL (32.0-36.0); MONO% 2.2 % (2-13); NEUT# 14.04 thou/uL (2.00-7.15); NEUT% 86.5 % (42-76); RED BLOOD COUNT 5.52 mill/uL (4.20-5.60); RED CELL DISTRI WIDTH 15.3 % (11.5-15.5)
[2022-09-03 14:36] LABS: ALBUMIN 4.5 g/dL (3.2-5.0); BILIRUBIN, TOTAL 0.6 mg/dL (0.02-1.3); CREATININE 1.3 mg/dL (0.5-1.0); POTASSIUM 4.2 mmol/l (3.5-5.1); TOTAL PROTEIN 8.3 g/dL (6.3-8.2)
[2022-09-03] MEDS ORDERED: AMLODIPINE BESY10 MG PO (16:24)
== END 2022-09-03 16:43 | disposition left against medical advice (07) ==
LOC: ED 13:54
PROVIDERS: Family Medicine
DX: I16.1 Hypertensive emergency (principal); I11.0 Hypertensive heart disease with heart failure; I50.9 Heart failure, unspecified; I48.91 Unspecified atrial fibrillation; E66.01 Morbid (severe) obesity due to excess calories; Z20.822 Contact with and (suspected) exposure to COVID-19; Z53.29 Procedure and treatment not carried out because of patient's decision for other reasons; I20.9 Angina pectoris, unspecified
CPT/HCPCS: Q9967

== ENCOUNTER 2023-04-05 17:26 | Emergency (ER) | payer SELFPAY ==
[2023-04-05] VITALS (12 sets, daily range): BP systolic 127–164; BP diastolic 74–101
[~2023-04-05] VITALS: Ht 160 cm; Wt 136.0 kg
[2023-04-05 18:06] LABS: BASO% 0.6 % (0-3); EOS% 0.7 % (0-8); HEMATOCRIT 54.3 % (37.0-47.0); HEMOGLOBIN 17.1 g/dl (12.0-16.0); IMMATURE GRANULOCYTES 0.6 % (0.0-5.0); LYMPH% 6.5 % (15-41); MEAN CELL VOLUME 93.3 fL CALC (80.0-100.0); MEAN CORPUSCULAR HGB 29.4 pG CALC (26.0-32.0); MEAN CORPUSCULAR HGB CONC 31.5 g/dL CAL (32.0-36.0); NEUT# 10.36 thou/uL (2.00-7.15); NEUT% 85.6 % (42-76); RED BLOOD COUNT 5.82 mill/uL (4.20-5.60); RED CELL DISTRI WIDTH 14.8 % (11.5-15.5)
[2023-04-05 18:17] LABS: CREATININE 1.6 mg/dL (0.5-1.0); POTASSIUM 4.3 mmol/l (3.5-5.1)
[2023-04-05 18:19] LABS: ALBUMIN 3.2 g/dL (3.2-5.0); BILIRUBIN, TOTAL 0.9 mg/dL (0.02-1.3); TOTAL PROTEIN 6.5 g/dL (6.3-8.2)
[2023-04-05] MEDS ORDERED: PROVENTIL0.083 % IN (20:25)
[2023-04-05] MEDS ORDERED: ZITHROMAX500 MG PO (20:26)
== END 2023-04-05 20:48 | disposition home or self-care (01) | DRG 293 ==
LOC: ED 17:26
PROVIDERS: Nurse Practitioner Acute Care
DX: I11.0 Hypertensive heart disease with heart failure (principal); I50.9 Heart failure, unspecified; R09.02 Hypoxemia; I48.91 Unspecified atrial fibrillation; K21.9 Gastro-esophageal reflux disease without esophagitis

== ENCOUNTER 2023-12-17 01:06 | Emergency (ER) | payer SELFPAY ==
[2023-12-17] VITALS (26 sets, daily range): BP systolic 166–216; BP diastolic 105–160
[~2023-12-17] VITALS: Ht 160 cm; Wt 85.0 kg
[~2023-12-17 01:06] MED LIST changes: +PROVENTIL0.083 % IN; +ZITHROMAX500 MG PO
[2023-12-17] MEDS ORDERED: ASPIRIN 81 MG/TAB PO ONE (01:40)
[2023-12-17] MEDS ORDERED: LABETALOL HCL 20 MG/ 4 ML CARTRG IV ONE ×2 (01:40→01:45)
[2023-12-17] MEDS ORDERED: PROMETHAZINE HCL 25 MG/ML AMP IM ONE (01:45)
[2023-12-17] MEDS ORDERED: SODIUM CHLORIDE 0.9% 1,000 ML IV ONE ×3 (01:45→03:35)
[2023-12-17 02:01] LABS: BASO% 0.5 % (0-3); EOS% 0.1 % (0-8); HEMOGLOBIN 18.5 g/dl (12.0-16.0); IMMATURE GRANULOCYTES 0.5 % (0.0-5.0); LYMPH% 17.9 % (15-41); MEAN CELL VOLUME 93.5 fL CALC (80.0-100.0); MEAN CORPUSCULAR HGB 29.8 pG CALC (26.0-32.0); MEAN CORPUSCULAR HGB CONC 31.9 g/dL CAL (32.0-36.0); MONO% 9.2 % (2-13); NEUT# 5.6 thou/uL (2.00-7.15); NEUT% 71.8 % (42-76); RED BLOOD COUNT 6.2 mill/uL (4.20-5.60); RED CELL DISTRI WIDTH 15.5 % (11.5-15.5)
[2023-12-17] MEDS ORDERED: IPRATROPIUM-Albuterol 0.5MG-2.5MG/3 ML NEB ONE ×2 (02:20)
[2023-12-17 02:36] LABS: URINE BLOOD DIPSTICK Large (NEGATIVE); URINE COLOR Yellow; URINE GLUCOSE - DIPSTICK Negative (NEGATIVE); URINE KETONE Negative (NEGATIVE); URINE LEUK ESTERASE Negative (NEGATIVE); URINE NITRITE - DIPSTICK Negative (Negative); URINE PROTEIN - DIPSTICK >=300 mg/dL (NEG-TRACE)
[2023-12-17 02:43] LABS: ALBUMIN 3.1 g/dL (3.2-5.0); BILIRUBIN, TOTAL 0.7 mg/dL (0.02-1.3); CREATININE 2.2 mg/dL (0.5-1.0); MAGNESIUM 1.8 mg/dL (1.6-2.3); POTASSIUM 3.5 mmol/l (3.5-5.1); TOTAL PROTEIN 6.6 g/dL (6.3-8.2)
[2023-12-17 02:51] LABS: URINE BACTERIA MODERATE hpf; URINE HYALINE CAST FEW lpf (NONE-RARE); URINE MUCUS FEW hpf (NONE-FEW); URINE SQUAMOUS EPITHELIAL CELL FEW EPI/hpf (0-FEW)
[2023-12-17] MEDS ORDERED: cloNIDine HCL 0.1 MG/TAB PO ONE (03:35)
[2023-12-17] MEDS ORDERED: METOPROLOL TARTRATE 5 MG/5 ML VIAL IV ONE (03:35)
[2023-12-17] MEDS ORDERED: DEXAMETHASONE 2 MG/TAB TAB PO ONE (03:35)
[2023-12-17] MEDS ORDERED: NITROGLYCERIN 2% OINT UD 1 GM/PAK TD ONE (03:35)
[2023-12-17] MEDS ORDERED: CALCIUM GLUCONATE 2 GM in SODIUM CHLORIDE 0.9% 100 ML IV ONE (03:40)
[2023-12-17 03:50] LABS: INTERNATIONAL NORMALIZED RATIO 1.2 RATIO (0.7-1.3)
[2023-12-17 03:51] LABS: PROTHROMBIN TIME 11.4 SECONDS (9.0-12.5)
[2023-12-17] MEDS ORDERED: ENOXAPARIN SODIUM 100 MG/ML SYR SC ONE (06:20)
[2023-12-17] MEDS ORDERED: FUROSEMIDE 40 MG/4 ML SDV IV ONE (06:25)
[2023-12-17 06:35] LABS: ALBUMIN 2.6 g/dL (3.2-5.0); BILIRUBIN, TOTAL 0.6 mg/dL (0.02-1.3); CREATININE 2.1 mg/dL (0.5-1.0); POTASSIUM 3.5 mmol/l (3.5-5.1); TOTAL PROTEIN 5.8 g/dL (6.3-8.2)
== END 2023-12-17 07:10 | disposition short-term general hospital (02) | DRG 313 ==
LOC: ED 01:06
PROVIDERS: Internal Medicine
DX: R07.9 Chest pain, unspecified (principal); I16.0 Hypertensive urgency; R79.89 Other specified abnormal findings of blood chemistry; I11.0 Hypertensive heart disease with heart failure; I50.9 Heart failure, unspecified; E11.9 Type 2 diabetes mellitus without complications; I48.91 Unspecified atrial fibrillation; Z20.822 Contact with and (suspected) exposure to COVID-19
CPT/HCPCS: J1650